=== PATIENT | male | born 1965 | race Caucasian/White ===

== ENCOUNTER 2022-05-04 08:21 | Outpatient (REF) | payer OTHER, SELFPAY ==
[2022-05-04 11:27] LABS: MANUAL DIFF FLAG NO
[2022-05-04 11:29] LABS: Basophils Percent Auto 0.7 % (0-2); Eosinophils Absolute Auto 0.2 X10*3/uL (0.0-0.4); Eosinophils Percent Auto 4.8 % (0-4); Hematocrit 44.6 % (42.0-52.0); Hemoglobin 14.7 g/dl (14.0-18.0); Imm Gran Abs Auto 0.01 X10*3/uL (0.00-0.03); Imm Gran Pct Auto 0.2 % (0.0-0.4); Lymphocytes Absolute Auto 1.1 X10*3/uL (1.2-4.9); Lymphocytes Percent Auto 27.3 % (20-40); Mean Corpuscular Hemoglobin 30.2 pg (27.0-33.0); Mean Corpuscular Volume 91.8 fL (80.0-98.0); Mean Platelet Volume 10.3 fL (9.4-12.4); Monocytes Absolute Auto 0.4 X10*3/uL (0.1-1.2); Monocytes Percent Auto 10.1 % (2-11); Neutrophils Absolute Auto 2.4 x10*3/uL (2.0-8.3); Neutrophils Percent Auto 56.9 % (45-73); Platelet Count 254 X10*3/uL (160-400); Red Blood Count 4.86 X10*6/uL (4.60-5.80); Red Cell Distribution Width 12.8 % (11.0-16.0); White Blood Count 4.1 X10*3/uL (4.8-10.8)
[2022-05-04 12:01] LABS: Appearance Urine Clear; Color Urine Yellow; Glucose Urine UA Negative (Negative); Leukocyte Esterase Urine Negative (Negative); Nitrite Urine Negative (Negative); PH 7.5 (5.0-9.0); Specific Gravity - Urine 1.015 (1.005-1.025); Urine Blood Negative (Negative); Urine Ketones Negative (Negative); Urine Protein Negative (Neg-Trace)
[2022-05-04 12:02] LABS: Alanine Aminotransferase 28 U/L (0-40); Albumin Level 4.1 g/dL (3.5-5.0); Alkaline Phosphatase 74 U/L (39-117); Anion Gap 12 (12-20); Aspartate Amino Transferase 28 U/L (5-37); Bilirubin Total 0.5 mg/dL (0.0-1.0); Blood Urea Nitrogen 16 mg/dL (9-16); Calcium 9.3 mg/dL (8.4-10.2); Carbon Dioxide 31 mmol/L (22-29); Chloride 100 mmol/L (96-108); Cholesterol 158 mg/dL; Estimated Glomerular Filt Rate > 60; Glucose Fasting 94 mg/dL (60-99); HDL Cholesterol 66 mg/dL; LDL Cholesterol Calculated 84 mg/dl; Sodium 139 mmol/L (135-145); Total Protein 6.6 g/dL (6.5-8.0); Triglycerides 44 mg/dL
[2022-05-04 12:10] LABS: PSA,Total (Free>4and<10) 0.66 ng/mL (0.00-4.00)
[2022-05-04 12:12] LABS: Bacteria Urine None Seen (None Seen); Hyaline Casts Urine 0-2 /LPF (0-2); RBC Urine 0-2 /HPF (0-2); Squamous Epithelial Cell Urine 0-2 /HPF (0-2); WBC Urine 0-5 /HPF (0-5)
== END 2022-05-04 08:22 | disposition home or self-care (01) ==
LOC: HO.HMGCLDS 08:21
PROVIDERS: PCP Internal Medicine; Visit Provider Internal Medicine
DX: Z00.00 Encounter for general adult medical examination without abnormal findings (principal); Z12.5 Encounter for screening for malignant neoplasm of prostate
CPT/HCPCS: 36415; 80053; 80061; 81001; 84153; 85025

== ENCOUNTER 2023-03-17 14:00 | Outpatient (RCR) | payer OTHER, SELFPAY ==
--- NOTE | 2023-02-03 13:48 | MHC.PT.EP ---
[facility] [place] [facility] [place] [facility] [place] Office [address] Elizabeth Guan [address] [phone] F: [phone] F: [phone] F: [phone] F: [phone] Physical Therapy Plan of Care Date of Evaluation: Date of Surgery: n/a Diagnosis: pain in R shoulder Assessment: Patient is a 57 year old male presenting to PT with complaints of pain in his R shoulder. Pt reports onset of pain began May 2022 due to insidious onset. He presents today with impairments in pain, stiffness, shoulder strength, and posture. 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 Pt expresses watermaster goal of improving strength, and is motivated to work towards this in PT. Clinical presentation today is most consistent with signs and sx associated with R shoulder pain and pt will benefit from skilled PT 2 week x 4 weeks to address the following problems and impairments noted upon evaluation: pain, stiffness, shoulder strength, and posture. These problems limit the patient with the following functional activities: reaching, lifting, yardwork, cleaning reaching . The prescribed treatment plan of care is medically necessary. Co-morbidities of none were identified and taken into considerations of plan of care. Pt was educated on HEP, role of PT, prognosis, POC. Frequency and Duration: The patient will be seen 2 x week x 4 weeks Short Term Goals: Pt will demonstrate improved R shoulder strength to 5/5 in 2 weeks. Pt will demonstrate R shoulder ROM in available range with less reports of stiffness in 2 weeks. Pt will demonstrate improved postural awareness by sitting with biomechanically correct posture without cues throughout session to improve overall postural function in 2 weeks. Correction Goals: Pt will demonstrate improved SPADI score by 13 points in 4 weeks for improved functional mobility. Pt will demonstrate ability to complete yard work with min to no pain in 4 weeks for improved tolerance to house hold duties. Pt will demonstrate ability to reach and lift with min to no pain in 4 weeks for return to PLOF. Treatment Plan: Modalities to reduce pain, spasms and effusion. Manual therapy to restore motion and function. Therapeutic exercise to improve strength and flexibility. Neuromuscular re-education for posture and balance. Therapeutic activities to return to functional activities of daily living. Electronically signed by: Varsha Seaman, PT, DPT, ATC Please sign and return to therapist. Thank you for your referral.
--- NOTE | 2023-03-25 09:26 | MHC.PT.DC ---
[facility] [place] Office [place] Office [place] Office [address] Elizabeth Guan 140 [facility] [phone] F: [phone] F: [phone] F: [phone] F: [phone] Physical Therapy Discharge Report Diagnosis: pain in R shoulder Date of Surgery: n/a Date of Evaluation: 02/03/23 Date of Discharge: 03/25/23 Treatments to Date: 8 Cancellations to Date: 7 No Shows to Date: 1 Discharge Status: Improved Function Independent with HEP Discharge Summary: The patient overall has been reporting an improvement in right shoulder strength. He is independent with his home exercise program. He is discharged to his home exercise program at this time. Electronically signed by: Ondina Chew PT, DPT Please sign and return to therapist. Thank you for your referral.
== END 2023-03-25 09:26 | disposition home or self-care (01) ==
LOC: HO.PT 14:00
PROVIDERS: PCP Internal Medicine; Visit Provider Internal Medicine
DX: M25.511 Pain in right shoulder (principal)
CPT/HCPCS: 97110; 97161; 97530

== ENCOUNTER 2023-03-31 10:03 | Outpatient (AMB) | payer OTHER, SELFPAY ==
--- NOTE | 2023-03-31 10:12 | A.OFFPC_ITS ---
Vital Signs 03/31/23 10:14 Height 6 ft Weight 165 lb BMI 22.4 BP 106/66 Blood Pressure Location Lt brachial Position Sitting Pulse 74 Pulse Source Pulse Oximeter Pulse Oximetry (%) 96 Oxygen Delivery Method Room Air Intake Visit Reasons: RT Ankle pain Intake Note: Pt is here today for a sick visit. Pt c/o R ankle pain and swelling since Tuesday. Allergies egg [EGGS] Allergy (Unknown, Unverified 03/31/23 10:15) RASH orange [ORANGES] Allergy (Unknown, Unverified 03/31/23 10:15) RASH CHOCOLATE Allergy (Unknown, Uncoded 03/31/23 10:15) RASH Medication List - Last Reconciled 03/31/23 by Arleen Kerr MD albuterol sulfate 90 mcg/actuation (ProAir HFA) 2 puffs inhalation Q6H PRN efinaconazole 10% (Jublia) 1 appl topical BEDTIME 48 weeks ibuprofen 800 mg PO Q8H montelukast 10 mg PO DAILY Tobacco use date assessed: 03/31/23 Dental Screening Dental Screen Date: 03/31/23 Did you have a dental visit in the last 12 months?: Yes Did you have a dental problem in the last 6 months where you did not have access to dental care?: No Was dental information given to patient?: Patient has dentist HPI RT Ankle pain HPI Details Pt c/o R ankle pain and swelling for 2 days. Pt has been Ibuprofen bid with some relief. Pt completed PT for R shoulder pain. [facility] Medical History Annual physical exam Asthma Asthma Family History Father Prostate cancer Mother No problems noted. Social History Housing: House Patient Tobacco Use Status: Never used Tobacco e-Cigarette/Vaping Use: Never Used Current occupational status: employed Cognitive needs: No Hearing needs: No Vision needs: Yes Questionnaire Thrive Questionnaire Date Thrive assessed: 11/05/22 SEUN-7 AMB Questionnaire SEUN-7 Date SEUN - 7 assessed: 11/05/22 Source: Developed by Drs. Stanislaw Prieto, Fela B.W. Román Helm and colleagues, with an educational elliot from [employer]. Review of Systems Const All systems reviewed & are unremarkable except as noted in HPI and below Reports no additional complaints Eyes Reports no additional complaints ENT Reports no additional complaints Card Reports no additional complaints Resp Reports no additional complaints GI Reports no additional complaints Reports no additional complaints Physical exam (Primary Care) Vital Signs: Last Vital Signs Pulse 74 03/31/23 10:14 BP 106/66 03/31/23 10:14 Pulse Ox 96 03/31/23 10:14 Oxygen Delivery Method Room Air 03/31/23 10:14 BMI result Body Mass Index 22.4 Tobacco/Smoking Status: Tobacco use Status Tobacco use date assessed 03/31/23 03/31/23 10:17 Patient Tobacco Use Status Never used Tobacco 03/31/23 10:13 e-Cigarette/Vaping Use Never Used 03/31/23 10:13 Thrive Assessment: Date of Thrive Assessment Date Thrive assessed 11/05/22 03/31/23 10:13 Const General: no acute distress Resp Auscultation: clear to auscultation bilaterally Cardio Rhythm: regular rhythm Heart sounds: S1 normal heart sound present and S2 normal heart sound present GI Inspection: Yes normal to inspection Extrem Other: Since slight lateral right ankle soft tissue swelling no erythema warmth or tenderness, there is a full range of motion right ankle Assessment and Plan Assessment & Plan (1) Right ankle swelling: Code(s): M25.471 - Effusion, right ankle Plan: Continue NSAIDs, elevation, ice compresses and supportive care (2) Annual physical exam: Code(s): Z00.00 - Encounter for general adult medical examination without abnormal findings Orders: Orders Comprehensive [place]. Panel Fast Today M25.471 - Effusion, right ankle, Z00.00 - Encounter for general adult medical examination without abnormal findings Lipid Panel Today M25.471 - Effusion, right ankle PSA,Total (Free>4and<10) Today M25.471 - Effusion, right ankle Complete Blood Count Auto Diff Today M25.471 - Effusion, right ankle Coding Level of Care Code Est Pt Level 3 (33269) Diagnoses Right ankle swelling M25.471 Annual physical exam Z00.00
[2023-03-31 10:14] VITALS: BP 106/66; PULSE 74; O2SAT 96; BMI 22.4
== END 2023-03-31 11:04 | disposition home or self-care (01) ==
PROVIDERS: PCP Internal Medicine; Visit Provider Internal Medicine
DX: M25.471 Effusion, right ankle (principal); Z00.00 Encounter for general adult medical examination without abnormal findings
CPT/HCPCS: 99213

== ENCOUNTER 2023-05-05 10:51 | Outpatient (AMB) | payer OTHER, SELFPAY ==
[2023-05-05 11:26] VITALS: BP 118/76; PULSE 52; O2SAT 98; BMI 22.1
--- NOTE | 2023-05-05 11:26 | A.OFFPC_ITS ---
Vital Signs 05/05/23 11:26 Height 6 ft Weight 163 lb BMI 22.1 BP 118/76 Blood Pressure Location Lt brachial Position Sitting Pulse 52 Pulse Source Pulse Oximeter Pulse Oximetry (%) 98 Oxygen Delivery Method Room Air Intake Visit Reasons: Annual PE Intake Note: Pt is here today for PE. Allergies egg [EGGS] Allergy (Unknown, Unverified 05/05/23 11:40) RASH orange [ORANGES] Allergy (Unknown, Unverified 05/05/23 11:40) RASH CHOCOLATE Allergy (Unknown, Uncoded 05/05/23 11:40) RASH Medication List - Last Reconciled 05/05/23 by Arleen Kerr MD albuterol sulfate 90 mcg/actuation (ProAir HFA) 2 puffs inhalation Q6H PRN efinaconazole 10% (Jublia) 1 appl topical BEDTIME 48 weeks ibuprofen 800 mg PO Q8H montelukast 10 mg PO DAILY terbinafine HCl 250 mg PO DAILY Tobacco use date assessed: 03/31/23 Dental Screening Dental Screen Date: 05/05/23 HPI Annual PE HPI Details Pt presents for PE. He complains of chronic BPH symptoms : weaker urinary stream, more frequent nocturnal urination for the last year, getting worse. Patient had seen urologist in the past and tried medication that he could not tolerate. Hr does not remember the name of the medication. Patient would like to see urologist for evaluation [facility] Medical History (Updated 05/05/23 @ 12:02 by Arleen Kerr MD) Asthma Annual physical exam Asthma Family History Father Prostate cancer Mother No problems noted. Social History Housing: House Patient Tobacco Use Status: Never used Tobacco e-Cigarette/Vaping Use: Never Used Current occupational status: employed Cognitive needs: No Hearing needs: No Vision needs: Yes Questionnaire Thrive Questionnaire Date Thrive assessed: 11/05/22 SEUN-7 AMB Questionnaire SEUN-7 Date SENU - 7 assessed: 11/05/22 Source: Developed by Drs. Stanislaw Prieto, Fela Helm, Román Pan and colleagues, with an educational elliot from [employer]. Review of Systems Const All systems reviewed & are unremarkable except as noted in HPI and below Reports no additional complaints Eyes Reports no additional complaints ENT Reports no additional complaints Card Reports no additional complaints Resp Reports no additional complaints GI Reports no additional complaints Reports no additional complaints Physical exam (Primary Care) Vital Signs: Last Vital Signs Pulse 52 05/05/23 11:26 BP 118/76 05/05/23 11:26 Pulse Ox 98 05/05/23 11:26 Oxygen Delivery Method Room Air 05/05/23 11:26 BMI result Body Mass Index 22.1 Tobacco/Smoking Status: Tobacco use Status Tobacco use date assessed 03/31/23 05/05/23 11:27 Patient Tobacco Use Status Never used Tobacco 05/05/23 11:27 e-Cigarette/Vaping Use Never Used 05/05/23 11:27 Thrive Assessment: Date of Thrive Assessment Date Thrive assessed 11/05/22 05/05/23 11:27 Const General: no acute distress HENMT Head: Yes normal to inspection Ears: hearing grossly normal bilaterally General nose exam: Normal external nose present Face and sinus: Yes normal facial exam Mouth: Normal oral and palatal mucosa present Throat: Yes posterior oropharynx normal Eyes General: appearance normal, both eyes and all related structures Neck Neck: Yes no lymphadenopathy and Yes supple Resp Effort & Inspection: normal respiratory effort Auscultation: clear to auscultation bilaterally Cardio Rhythm: regular rhythm Heart sounds: S1 normal heart sound present and S2 normal heart sound present GI Inspection: Yes normal to inspection Palpation (GI): Soft to palpation Percussion: Yes normal to percussion Auscultation: normal bowel sounds Assessment and Plan Assessment & Plan (1) Annual physical exam: Code(s): Z00.00 - Encounter for general adult medical examination without abnormal findings Plan: Well-balanced diet and regular physical activity discussed with the patient. he will return for fasting blood work (2) Colon cancer screening: Comment: Juanito 05/29 negative Code(s): Z12.11 - Encounter for screening for malignant neoplasm of colon (3) BPH (benign prostatic hyperplasia): Code(s): N40.0 - Benign prostatic hyperplasia without lower urinary tract symptoms Plan: Referred to urology and check PSA Orders: Referrals Urology Referral N40.0 - Benign prostatic hyperplasia without lower urinary tract symptoms Coding Level of Care Code Est Pt Prev Care 40-64y(60488) Diagnoses Annual physical exam Z00.00 Colon cancer screening Z12.11 BPH (benign prostatic hyperplasia) N40.0
== END 2023-05-05 12:10 | disposition home or self-care (01) ==
PROVIDERS: Visit Provider Internal Medicine
DX: Z00.00 Encounter for general adult medical examination without abnormal findings (principal); Z12.11 Encounter for screening for malignant neoplasm of colon; N40.0 Benign prostatic hyperplasia without lower urinary tract symptoms
CPT/HCPCS: 99396

== ENCOUNTER 2023-05-06 07:40 | Outpatient (REF) | payer OTHER, SELFPAY ==
[2023-05-06 11:14] LABS: MANUAL DIFF FLAG NO
[2023-05-06 11:34] LABS: Basophils Absolute Auto 0.1 X10*3/uL (0.0-0.2); Basophils Percent Auto 1.8 % (0-2); Eosinophils Absolute Auto 0.3 X10*3/uL (0.0-0.4); Eosinophils Percent Auto 6.6 % (0-4); Hematocrit 44.3 % (42.0-52.0); Hemoglobin 14.6 g/dl (14.0-18.0); Imm Gran Abs Auto 0.01 X10*3/uL (0.00-0.03); Imm Gran Pct Auto 0.3 % (0.0-0.4); Lymphocytes Absolute Auto 1.1 X10*3/uL (1.2-4.9); Lymphocytes Percent Auto 27.9 % (20-40); Mean Corpuscular Hemoglobin 30.4 pg (27.0-33.0); Mean Corpuscular Volume 92.1 fL (80.0-98.0); Mean Platelet Volume 10.6 fL (9.4-12.4); Monocytes Absolute Auto 0.4 X10*3/uL (0.1-1.2); Monocytes Percent Auto 10.7 % (2-11); Neutrophils Absolute Auto 2.1 x10*3/uL (2.0-8.3); Neutrophils Percent Auto 52.7 % (45-73); Platelet Count 233 X10*3/uL (160-400); Red Blood Count 4.81 X10*6/uL (4.60-5.80); Red Cell Distribution Width 12.6 % (11.0-16.0); White Blood Count 3.9 X10*3/uL (4.8-10.8)
[2023-05-06 11:35] LABS: Alanine Aminotransferase 30 U/L (0-40); Albumin Level 4.2 g/dL (3.5-5.0); Alkaline Phosphatase 70 U/L (39-117); Anion Gap 15 (12-20); Aspartate Amino Transferase 36 U/L (5-37); Bilirubin Total 0.7 mg/dL (0.0-1.0); Blood Urea Nitrogen 16 mg/dL (9-16); Calcium 9.4 mg/dL (8.4-10.2); Carbon Dioxide 29 mmol/L (22-29); Chloride 100 mmol/L (96-108); Cholesterol 160 mg/dL (<200); Estimated Glomerular Filt Rate > 60; Glucose Fasting 88 mg/dL (60-99); HDL Cholesterol 70 mg/dL (>40); LDL Cholesterol Calculated 82 mg/dL (<100); Potassium 3.9 mmol/L (3.3-5.1); Sodium 140 mmol/L (135-145); Total Protein 7.1 g/dL (6.5-8.0); Triglycerides 41 mg/dL (<150)
[2023-05-06 11:53] LABS: PSA,Total (Free>4and<10) 0.86 ng/mL (0.00-4.00)
== END 2023-05-06 07:41 | disposition home or self-care (01) ==
LOC: HO.HMGCLDS 07:40
PROVIDERS: PCP Internal Medicine; Visit Provider Internal Medicine
DX: Z00.00 Encounter for general adult medical examination without abnormal findings (principal); Z12.5 Encounter for screening for malignant neoplasm of prostate; M25.471 Effusion, right ankle
CPT/HCPCS: 36415; 80053; 80061; 84153; 85025

== ENCOUNTER 2023-06-23 11:07 | Outpatient (AMB) | payer OTHER, SELFPAY ==
--- NOTE | 2023-06-23 11:11 | A.OFFVIS_ITS ---
Intake Intake Visit Reasons: BPH Intake Note: NEW Patient presents today to established treatment for BPH: Meds- Rapaflo Allergies to Antibiotic- No Known Allergies Blood Thinner- None Compensation Vice President Required: No Accompanied by: Self / Same As Patient Allergies egg [EGGS] Allergy (Unknown, Unverified 06/23/23 12:03) RASH orange [ORANGES] Allergy (Unknown, Unverified 06/23/23 12:03) RASH CHOCOLATE Allergy (Unknown, Uncoded 06/23/23 12:03) RASH Medication List - Last Reconciled 06/23/23 by Renee Chaudhari MD albuterol sulfate 90 mcg/actuation (ProAir HFA) 2 puffs inhalation Q6H PRN efinaconazole 10% (Jublia) 1 appl topical BEDTIME 48 weeks ibuprofen 800 mg PO Q8H montelukast 10 mg PO DAILY silodosin (Rapaflo) 8 mg PO DAILY terbinafine HCl 250 mg PO DAILY HPI HPI Comments History of Present Illness Details Garfield is a 58-year-old male who presents today to the office to establish as a new patient for an evaluation of BPH. 06/23/2023-- Patient states that he has noticed weak urinary stream and increased urinary frequency during the day. Patient states that he is getting up 1-3 times at night to urinate. His AUA symptoms score was 24. He denies any urinary burning with urination or blood in the urine. He states that years ago he saw a urologist and was prescribed with a medication and was instructed to take it night. He notes that by taking the medication he felt like he was going to pass out. Patient states that he only took the medication once due to its side effects. I did review the PSA on 05/06/2023 revealed 0.86 ng/mL Evaluation today--UA-- leukocytes: negative; blood: negative. Plan: Kidney bladder US was ordered. Ordered Rapaflo 8 mg. PFSH Medical History Asthma Annual physical exam Asthma Family History Father Prostate cancer Mother No problems noted. Social History Housing: House Patient Tobacco Use Status: Never used Tobacco e-Cigarette/Vaping Use: Never Used Current occupational status: employed Cognitive needs: No Hearing needs: No Vision needs: Yes Review of Systems Const All systems reviewed & are unremarkable except as noted in HPI and below Reports no additional complaints Eyes Reports no additional complaints ENT Reports no additional complaints Card Denies dyspnea Resp Denies cough and Denies dyspnea GI Reports no additional complaints Musc Reports no additional complaints Skin/Breast Denies rash and Denies unusual bruising Neuro Reports no additional complaints Psych Reports no additional complaints Endo Reports no additional complaints Jimmy/Lymph Reports no additional complaints Aller/Immun Reports no additional complaints Physical Exam Const General: healthy appearing, no acute distress and well developed Orientation/consciousness: patient oriented x3 HEENT Head: Yes normocephalic and Yes atraumatic Eyes Conjunctivae: conjunctivae normal Neck Neck: Yes normal visual inspection Chest Chest palpation & inspection: normal inspection of the chest Resp Effort & Inspection: normal respiratory effort Cardio Rate: regular rate GI Inspection: Yes normal to inspection Skin General skin exam: no rashes or lesions noted Neuro General: patient oriented x3 Extrem General: No pedal edema Psych Appearance: grossly normal Affect: normal affect Results AMB Urinalysis, Automated UA Leukoctes 0 Jessica/uL Last Edit by BARB Vega on 06/23/23 11:34 UA Nitrite Negative Last Edit by BARB Vega on 06/23/23 11:34 UA Urobilinogen 0.2 mg/dL Last Edit by BARB Vega on 06/23/23 11:3 4 UA Protein 0 mg/dL Last Edit by BARB Vega on 06/23/23 11:34 UA pH 6.0 Last Edit by BARB Vega on 06/23/23 11:34 UA Blood 10 Tres/uL Last Edit by BARB Vega on 06/23/23 11:34 UA Specific Hawkins 1.025 Last Edit by BARB Vega on 06/23/23 11: 34 UA Ketone Negative Last Edit by BARB Vega on 06/23/23 11:34 UA Bilirubin 0 mg/dL Last Edit by DANIEL VegaA on 06/23/23 11:34 UA Glucose 0 mg/dL Last Edit by BARB Vega on 06/23/23 11:34 Results Reviewed Results Reviewed: Laboratory Last Values Urine pH (Auto) 6.0 06/23/23 11:33 Specific Hawkins (Auto) 1.025 06/23/23 11:33 Urine Protein (Auto) 0 mg/dL 06/23/23 11:33 Glucose (UA)(Auto) 0 mg/dL 06/23/23 11:33 Urine Ketones (Auto) Negative 06/23/23 11:33 Urine Blood (Auto) 10 Tres/uL 06/23/23 11:33 Urine Nitrite (Auto) Negative 06/23/23 11:33 Urine Bilirubin (Auto) 0 mg/dL 06/23/23 11:33 Urine Urobilinogen (Auto) 0.2 mg/dL 06/23/23 11:33 Leukocyte Esterase (Auto) 0 Jessica/uL 06/23/23 11:33 Assessment & Plan Assessment & Plan (1) BPH (benign prostatic hyperplasia): Code(s): N40.0 - Benign prostatic hyperplasia without lower urinary tract symptoms (2) Weak urinary stream: Code(s): R39.12 - Poor urinary stream (3) Urinary urgency: Code(s): R39.15 - Urgency of urination Plan Kidney bladder US was ordered. Ordered Rapaflo 8 mg. Orders: Orders AMB Urinalysis Automated 06/23/23 Z13.9 - Encounter for screening, unspecified Medications: New silodosin (Rapaflo) must administer with a meal/food 8 mg PO DAILY 30 caps 2RF Patient Instructions: The patient had an opportunity to ask questions regarding treatment plan. All questions were answered. Imaging, Laboratory studies and physical exam results were discussed and reviewed in detail. No major barriers to understanding were identified. The patient expressed understanding and agreement with the above treatment plan. The patient is aware they should contact our office by phone for worsening of their current condition or the appearance of new symptoms. Compliance is encouraged with any medications and followup testing that is ordered. It is a privilege to be allowed the opportunity to participate in the urologic care of your patient. If you have any questions or concerns regarding treatment for the above conditions please do not hesitate to contact me. The office telephone contact is [phone]. This note is constructed in part using voice recognition software. While every effort has been made to ensure accuracy piano professor errors may have been included. Yours sincerely, Renee Chaudhari MD Coding Level of Care Code New Pt Level 4 (04663) Diagnoses BPH (benign prostatic hyperplasia) N40.0 Weak urinary stream R39.12 Urinary urgency R39.15
== END 2023-06-23 11:54 | disposition home or self-care (01) ==
PROVIDERS: PCP Internal Medicine; Visit Provider Urology
DX: N40.0 Benign prostatic hyperplasia without lower urinary tract symptoms (principal); R39.12 Poor urinary stream; R39.15 Urgency of urination
CPT/HCPCS: 99204

== ENCOUNTER → 2023-06-23 11:07 | Outpatient (BNVA) | payer OTHER, SELFPAY | PROVIDERS: PCP Internal Medicine; Visit Provider Urology | DX: N40.0 Benign prostatic hyperplasia without lower urinary tract symptoms (principal); R39.12 Poor urinary stream; R39.15 Urgency of urination | CPT/HCPCS: 81003 ==

== ENCOUNTER 2023-08-17 14:29 | Outpatient (REF) | payer OTHER, SELFPAY ==
--- NOTE | ~2023-08-17 | US_ITS ---
EXAMINATION: US RETROPERITONEAL LIMITED (RENAL ONLY) CLINICAL INFORMATION: Urgency of urination. COMPARISON: None available. TECHNIQUE: Real-time imaging of the kidneys. FINDINGS: RIGHT KIDNEY: 12.8 x 4.1 x 5.5 cm (SAG x AP x TRV). The kidney is normal in size, contour, and echogenicity. Renal cortical thickness is normal. No calculi or focal parenchymal lesions. No hydronephrosis. LEFT KIDNEY: 11.4 x 4.8 x 5.5 cm (SAG x AP x TRV). The kidney is normal in size, contour, and echogenicity. Renal cortical thickness is normal. No calculi or focal parenchymal lesions. No hydronephrosis. US/US renal BI IMPRESSION: Normal kidneys.
== END 2023-08-17 14:30 | disposition home or self-care (01) ==
LOC: HO.HMGCX 14:29
PROVIDERS: PCP Internal Medicine; Visit Provider Urology
DX: R39.15 Urgency of urination (principal); R39.12 Poor urinary stream; N20.0 Calculus of kidney
CPT/HCPCS: 76775

== ENCOUNTER 2023-08-18 07:37 | Outpatient (REF) | payer OTHER, SELFPAY ==
--- NOTE | ~2023-08-18 | XR_ITS ---
EXAMINATION: XR SHOULDER, RIGHT CLINICAL INFORMATION: Reason for Exam M25.519 - Pain in unspecified shoulder COMPARISON: None TECHNIQUE: Three views of the shoulder. FINDINGS: No acute fracture or dislocation. Mild degenerative changes of the acromioclavicular joint with degenerative spurring. Well-corticated osseous fragment in the acromioclavicular joint may reflect sequelae of remote avulsion injury or loose body. Soft tissues are unremarkable. XR/XR shoulder RT min 2V IMPRESSION: Mild degenerative changes of the acromioclavicular joint with degenerative spurring. Well-corticated osseous fragment in the acromioclavicular joint may reflect sequelae of remote avulsion injury or loose body.
== END 2023-08-18 07:38 | disposition home or self-care (01) ==
LOC: HO.HOSX 07:37
PROVIDERS: Visit Provider Orthopaedic Surgery
DX: M25.511 Pain in right shoulder (principal)
CPT/HCPCS: 20610; 73030; J0665; J1100

== ENCOUNTER 2023-08-18 10:54 | Outpatient (AMB) | payer OTHER, SELFPAY ==
--- NOTE | 2023-08-18 11:09 | A.OFFVIS_ITS ---
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 He has tried and failed 800mg Ibuprofen as well as physical therapy which didnt help. Pain is worsened with lifting, reaching and carrying. 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 He has found little to no relief from NSAIDS or PT, and is interested in injections. [facility] Medical History Asthma Annual physical exam Asthma Family History Father Prostate cancer Mother No problems noted. Social History Housing: House Patient Tobacco Use Status: Never used Tobacco e-Cigarette/Vaping Use: Never Used Current occupational status: employed Cognitive needs: No Hearing needs: No Vision needs: Yes Review of Systems Const All systems reviewed & are unremarkable except as noted in HPI and below Physical Exam Const General: no acute distress, alert and awake Orientation/consciousness: patient oriented x3 HEENT Head: Yes normocephalic and Yes atraumatic Eyes EOM: EOMs intact bilaterally Resp Effort & Inspection: normal respiratory effort and able to speak in complete sentences Cardio Jugular venous distension: no JVD Skin General skin exam: turgor normal Rashes: no rashes Neuro General: patient oriented x3 Extrem Other: full rom neg ec neg impingement + o'diana's and ttp bicipital groove Psych Appearance: grossly normal Affect: normal affect Attitude: cooperative Office Procedures Joint Injection/Drain Joint Injection/Drain Details: Injected 1 mL of Decadron and 3 mL 1% lidocaine and 3 mL of 0.25% Marcaine. Site was prepped using aseptic technique. Patient tolerated the procedure well. Primary Site: right shoulder Approach Used: posterolateral Coding - Large joint Procedure code (CPT) selection complete Results Reviewed Results Reviewed: I personally reviewed relevant radiographs nl shoulder radiographs Assessment & Plan Assessment & Plan (1) Right shoulder pain: Code(s): M25.511 - Pain in right shoulder Plan: I injected his right shoulder. He has occasional pain and a fairly benign exam. If injection not helpful may consider more advanced imaging. Plan Scribed for Kashif David MD by Raz Hanna, medical photographer, on 08/18/23 at 11:13 AM, EST. Orders: Orders XR shoulder RT min 2V 08/18/23 M25.519 - Pain in unspecified shoulder Coding Level of Care Code New Pt Level 3 (92852) Diagnoses Right shoulder pain M25.511 CPT Codes Coding - Large joint: 66480 - Large joint ([id number])
== END 2023-08-18 11:40 | disposition home or self-care (01) ==
PROVIDERS: PCP Internal Medicine; Visit Provider Orthopaedic Surgery
DX: M25.511 Pain in right shoulder (principal)
CPT/HCPCS: 20610; 99203

== ENCOUNTER 2023-09-15 14:08 | Outpatient (AMB) | payer OTHER, SELFPAY ==
--- NOTE | 2023-09-15 14:14 | A.OFFVIS_ITS ---
Intake Intake Visit Reasons: 7w/US Intake Note: Patient presents today for Ultrasound Results: Meds- Rapaflo Allergies to Antibiotic- No Known Allergies Blood Thinner- None Merchandise Clerk Required: No Accompanied by: Self / Same As Patient Allergies egg [EGGS] Allergy (Unknown, Verified 09/15/23 14:34) RASH orange [ORANGES] Allergy (Unknown, Verified 09/15/23 14:34) RASH CHOCOLATE Allergy (Unknown, Uncoded 09/15/23 14:34) RASH Medication List - Last Reconciled 09/15/23 by Renee Chaudhari MD albuterol sulfate 90 mcg/actuation (ProAir HFA) 2 puffs inhalation Q6H PRN efinaconazole 10% (Jublia) 1 appl topical BEDTIME 48 weeks ibuprofen 800 mg PO Q8H montelukast 10 mg PO DAILY silodosin (Rapaflo) 8 mg PO DAILY terbinafine HCl 250 mg PO DAILY HPI HPI Comments History of Present Illness Details 09/15/23--Garfield is a 58-year-old male who presents today to the office for follow up. He was initially evaluated on 06/23/2023 as a new patient for an evaluation of BPH. LV--06/23/2023--Patient states that he has noticed weak urinary stream and in creased urinary frequency during the day. Patient states that he is getting up 1-3 times at night to urinate. His AUA symptoms score was 24/35. He denies any urinary burning with urination or blood in the urine. He states that years ago he saw a urologist and was prescribed with a medication and was instructed to take it night. He notes that by taking the medication he felt like he was going to pass out. Patient states that he only took the medication once due to its side effects. PSA on 05/06/2023 revealed 0.86 ng/mL I reviewed renal ultrasound results, performed on 08/17/2023. Kidneys are within normal limits. The patient states that he used the Rapaflo for about 2 weeks but stopped because when he woke up in the night he had a warm feeling or sensation that he did not like. He states he was prescribed a different medication by another urologist that made him dizzy. (this may have been tamsulosin). I discussed possible trial of alfuzosin which he refuses at this time. He is interested in an herbal medication that might help his prostate and he has discussed that saw palmetto may be helpful. Advised avoid caffeine products and avoid dietary irritants. Plan: Patient will consider use of saw palmetto PSA screening follow-up in 9 months [facility] Medical History (Updated 09/15/23 @ 14:29 by Renee Chaudhari MD) Asthma Annual physical exam Asthma Surgical History (Updated 09/15/23 @ 14:35 by BARB Vega) No pertinent past surgical history Family History Father Prostate cancer Mother No problems noted. Social History Housing: House Patient Tobacco Use Status: Never used Tobacco e-Cigarette/Vaping Use: Never Used Current occupational status: employed Cognitive needs: No Hearing needs: No Vision needs: Yes Review of Systems Const All systems reviewed & are unremarkable except as noted in HPI and below Reports no additional complaints Eyes Reports no additional complaints ENT Denies neck pain Card Denies leg edema Resp Denies cough GI Denies constipation Musc Reports no additional complaints and Denies neck pain Skin/Breast Denies rash and Denies unusual bruising Neuro Reports no additional complaints Psych Reports no additional complaints Endo Reports no additional complaints Jimmy/Lymph Reports no additional complaints Aller/Immun Reports no additional complaints Results Reviewed Results Reviewed: Date of Service: 08/17/23 EXAMINATION: US RETROPERITONEAL LIMITED (RENAL ONLY) CLINICAL INFORMATION: Urgency of urination. COMPARISON: None available. TECHNIQUE: Real-time imaging of the kidneys. FINDINGS: RIGHT KIDNEY: 12.8 x 4.1 x 5.5 cm (SAG x AP x TRV). The kidney is normal in size, contour, and echogenicity. Renal cortical thickness is normal. No calculi or focal parenchymal lesions. No hydronephrosis. LEFT KIDNEY: 11.4 x 4.8 x 5.5 cm (SAG x AP x TRV). The kidney is normal in size, contour, and echogenicity. Renal cortical thickness is normal. No calculi or focal parenchymal lesions. No hydronephrosis. IMPRESSION: Normal kidneys. Assessment & Plan Assessment & Plan (1) Screening PSA (prostate specific antigen): Code(s): Z12.5 - Encounter for screening for malignant neoplasm of prostate (2) Nocturia: Code(s): R35.1 - Nocturia (3) BPH (benign prostatic hyperplasia): Code(s): N40.0 - Benign prostatic hyperplasia without lower urinary tract symptoms (4) Weak urinary stream: Code(s): R39.12 - Poor urinary stream Plan Patient will consider use of BodBot PSA screening follow-up in 9 months Orders: Orders US renal BI 08/17/23 N40.0 - Benign prostatic hyperplasia without lower urinary tract symptoms, R39.12 - Poor urinary stream, R39.15 - Urgency of urination PSA,Total (Free>4and<10) Today Z12.5 - Encounter for screening for malignant neoplasm of prostate Patient Instructions: The patient had an opportunity to ask questions regarding treatment plan. All questions were answered. Imaging, Laboratory studies and physical exam results were discussed and reviewed in detail. No major barriers to understanding were identified. The patient expressed understanding and agreement with the above treatment plan. The patient is aware they should contact our office by phone for worsening of their current condition or the appearance of new symptoms. Compliance is encouraged with any medications and followup testing that is ordered. It is a privilege to be allowed the opportunity to participate in the urologic care of your patient. If you have any questions or concerns regarding treatment for the above conditions please do not hesitate to contact me. The office telephone contact is [phone]. This note is constructed in part using voice recognition software. While every effort has been made to ensure accuracy package designer errors may have been included. Yours sincerely, Renee Chaudhari MD Coding Level of Care Code Est Pt Level 4 (34447) Diagnoses Screening PSA (prostate specific antigen) Z12.5 Nocturia R35.1 BPH (benign prostatic hyperplasia) N40.0 Weak urinary stream R39.12
== END 2023-09-15 14:32 | disposition home or self-care (01) ==
PROVIDERS: PCP Internal Medicine; Visit Provider Urology
DX: Z12.5 Encounter for screening for malignant neoplasm of prostate (principal); R35.1 Nocturia; N40.0 Benign prostatic hyperplasia without lower urinary tract symptoms; R39.12 Poor urinary stream
CPT/HCPCS: 99214

== ENCOUNTER → 2023-09-15 14:08 | Outpatient (BNVA) | payer OTHER, SELFPAY | PROVIDERS: PCP Internal Medicine; Visit Provider Urology | DX: R39.15 Urgency of urination (principal); R39.12 Poor urinary stream; N40.0 Benign prostatic hyperplasia without lower urinary tract symptoms ==

== ENCOUNTER 2023-11-10 09:40 | Outpatient (REF) | payer OTHER, SELFPAY ==
--- NOTE | ~2023-11-10 | XR_ITS ---
EXAMINATION: XR LUMBOSACRAL SPINE CLINICAL INFORMATION: Low back pain COMPARISON: None available. TECHNIQUE: Three views of the lumbosacral spine. FINDINGS: The visualized lumbar vertebrae are intact with anterior L4 on L5 displacement by 0.4 cm. Intervertebral disc spaces are mildly decreased at L4-L5, markedly decreased at L5-S1. Vacuum disc phenomenon is seen at L5-S1. XR/XR lumbar spine 2-3V IMPRESSION: 1. Grade 1 L4-L5 anterolisthesis. 2. Mild L4-L5 and advanced L5-S1 degenerative lumbar disc disease.
== END 2023-11-10 09:41 | disposition home or self-care (01) ==
LOC: HO.HOSX 09:40
PROVIDERS: Visit Provider Physical Medicine & Rehabilitation
DX: M54.50 Low back pain, unspecified (principal); G89.29 Other chronic pain
CPT/HCPCS: 72100

== ENCOUNTER 2023-11-10 09:55 | Outpatient (AMB) | payer OTHER, SELFPAY ==
--- NOTE | 2023-11-10 10:16 | A.OFFVIS_ITS ---
Intake Intake Visit Reasons: New Prob- Lower back pain Intake Note: Garfield is a 58 year old male who presents to the office today for a lower back pain. Pt states this started years ago but states he has tried OTC meds but it hasnt fixed the problem . He states the lower back pain is mainly after sitting for longer periods of time. Pt states the pain just stays in his lower back and doesnt radiate. Allergies egg [EGGS] Allergy (Unknown, Verified 11/10/23 10:16) RASH orange [ORANGES] Allergy (Unknown, Verified 11/10/23 10:16) RASH CHOCOLATE Allergy (Unknown, Uncoded 11/10/23 10:16) RASH Medication List - Last Reconciled 11/10/23 by Didi Begum MD albuterol sulfate 90 mcg/actuation (ProAir HFA) 2 puffs inhalation Q6H PRN efinaconazole 10% (Jublia) 1 appl topical BEDTIME 48 weeks ibuprofen 800 mg PO Q8H montelukast 10 mg PO DAILY silodosin (Rapaflo) 8 mg PO DAILY terbinafine HCl 250 mg PO DAILY HPI HPI Comments History of Present Illness Details Back pain in his 20s. Manageable for most part before. Getting worse recently. Had gone to chiropractor, took some xrays, told to have arthritis, years ago. Has been worse with sitting on couches. Non radicular. Midline. No numbness. No weakness. Stiff in the morning. Treatment done so far: icy/hot ibuprofen prn chiropractor PFS Medical History (Updated 11/10/23 @ 11:49 by Didi Begum MD) Chronic back pain Asthma Annual physical exam Asthma Surgical History No pertinent past surgical history Family History Father Prostate cancer Mother No problems noted. Social History Housing: House Patient Tobacco Use Status: Never used Tobacco e-Cigarette/Vaping Use: Never Used Current occupational status: employed Cognitive needs: No Hearing needs: No Vision needs: Yes Review of Systems Const All systems reviewed & are unremarkable except as noted in HPI and below Physical Exam Constitutional: Patient appears to be in no acute distress, well nourished and well developed. Patient was appropriately conversant and oriented. Good historian. MSK: No specific abnormalities found on inspection of the spine and all extremities. No pain with palpation over the lumbar area. Lumbar ROM was full. Bilateral hip, knee and ankle ROM WNL. No ligamentous laxity or crepitance. No increased effusion. Straight-leg raising test negative. FABERE test negative. Strength is 5/5 in all muscle groups tested. No increased tone noted. Neurological: Neurologic examination of the upper and lower extremities was nonfocal with intact sensation, muscle stretch reflexes and without focal motor deficits . Zazueta?s negative bilaterally. Babinski was down going bilaterally. Clonus was negative. Gait is non-antalgic without loss of balance. Results Reviewed Results Reviewed: I independently reviewed the results of the following: Lumbar x-ray done today shows decreased disc space L5-S1, question grade 1/mild L1-L2 listhesis? I reviewed records from the following: ortho - seen patient for right shoulder, injection done Assessment & Plan Assessment & Plan (1) Chronic back pain: Code(s): M54.9 - Dorsalgia, unspecified; G89.29 - Other chronic pain Qualifiers: Back pain location: low back pain Back pain laterality: midline Sciatica presence: without sciatica Qualified Code(s): M54.50 - Low back pain, unspecified; G89.29 - Other chronic pain Plan Chronic ischial back pain, no signs of radiculopathy, worse with prolonged sitting. Recommended return to chiropractor and/or physical therapy. He opts to go to chiropractor, referral placed. We did talk about possible MBB or facet injection under pain management. We will consider that after official x-ray reading seen. Await final reading for x-ray. Considering further lumbar imaging, depending on results. Assessment and plan discussed with patient, and patient was agreeable. All questions were answered thoroughly. We will touch base with patient after x-ray has been read. Didi Begum MD, BENJAMIN Board Certified, [place] [employer] and Rehabilitation (ABPMR) Board Certified, [place] [employer] Electro[employer]ostic [employer] (ABEM) Orders: Orders XR lumbar spine 2-3V Today M54.9 - Dorsalgia, unspecified Referrals Chiropractic Referral G89.29 - Other chronic pain, M54.9 - Dorsalgia, unspecified Coding Level of Care Code New Pt Level 4 (92820) Diagnoses Chronic midline low back pain without sciatica M54.50; G89.29 Back pain location: low back pain Back pain laterality: midline Sciatica presence: without sciatica
== END 2023-11-10 10:59 | disposition home or self-care (01) ==
PROVIDERS: PCP Internal Medicine; Visit Provider Physical Medicine & Rehabilitation
DX: M54.50 Low back pain, unspecified (principal); G89.29 Other chronic pain
CPT/HCPCS: 99204

== ENCOUNTER 2024-01-23 10:27 | Outpatient (AMB) | payer OTHER, SELFPAY ==
--- NOTE | 2024-01-23 10:43 | MHC.OFFVIS ---
Vital Signs 01/23/24 10:44 Height 6 ft Weight 160 lb BMI 21.7 Handedness Right Intake Visit Reasons: OV - Right shoulder pain Intake Note: Garfield is a 58 year old right hand dominant male who presents today for a follow up visit for his right shoulder pain. Last injection 08/18/23. Patient reports his right shoulder is feeling weaker than his left. He expresses he is having discomfort and pain when he raises his arm laterally with limited ROM. He has tried Advil which provides him with mild relief. He would like to discuss another injection today. Allergies tomato Allergy (Mild, Verified 01/23/24 10:49) Rash egg [EGGS] Allergy (Unknown, Verified 01/23/24 10:49) RASH orange [ORANGES] Allergy (Unknown, Verified 01/23/24 10:49) RASH CHOCOLATE Allergy (Unknown, Uncoded 11/10/23 10:16) RASH HPI HPI OV - Right shoulder pain: Details: Garfield is a 58 year old right hand dominant male who presents today for a follow up visit for his right shoulder pain. Last injection 08/18/23. Patient reports his right shoulder is feeling weaker than his left. He expresses he is having discomfort and pain when he raises his arm laterally with limited ROM. He has tried Advil which provides him with mild relief. He would like to discuss another injection today.HE continues to describe pain and weakness with activity such as working in his yard. The pain is not severe but the weakness does bother him. The last injection was not particularly helpful. He underwent PT about 6 months ago. [facility] Medical History Spondylolisthesis, lumbar region Chronic back pain Asthma Annual physical exam Asthma Surgical History No pertinent past surgical history Family History Father Prostate cancer Mother No problems noted. Social History Housing: House Patient Tobacco Use Status: Never used Tobacco e-Cigarette/Vaping Use: Never Used Current occupational status: employed Cognitive needs: No Hearing needs: No Vision needs: Yes Physical Exam Vital Signs: BMI result Body Mass Index 21.7 Extrem Other: Full ROM +H/N and 4+/5 EC TTP Bicipital groove and + O'diana's Results Reviewed Results Reviewed: I personally reviewed relevant radiographs. Nl shoulder radiographs with the exception of small osteophyte adjacent to AC joint Assessment & Plan Assessment & Plan (1) Weakness of right shoulder: Code(s): R29.898 - Other symptoms and signs involving the musculoskeletal system Category: Medical Plan: Injections and PT have not been helpful. MRI of right shoudler ordered. Coding Level of Care Code Est Pt Level 3 (28179) Diagnoses Weakness of right shoulder R29.898
[2024-01-23 10:44] VITALS: BMI 21.7
== END 2024-01-23 11:00 | disposition home or self-care (01) ==
PROVIDERS: PCP Internal Medicine; Visit Provider Orthopaedic Surgery
DX: M25.511 Pain in right shoulder (principal); R29.898 Other symptoms and signs involving the musculoskeletal system
CPT/HCPCS: 99213

== ENCOUNTER → 2024-01-23 10:27 | Outpatient (BNVA) | payer OTHER, SELFPAY | PROVIDERS: PCP Internal Medicine; Visit Provider Orthopaedic Surgery ==

== ENCOUNTER 2024-02-16 10:00 | Outpatient (AMB) | payer OTHER, SELFPAY ==
--- NOTE | 2024-02-16 10:12 | A.OFFVIS_ITS ---
Vital Signs 02/16/24 10:18 Height 6 ft Weight 160 lb BMI 21.7 Intake Visit Reasons: OV-Lower back follow up appointment Intake Note: Garfield is a 58 year old male who presents to the office today for Lower back follow up. Xrays of lumbar spine done 11/10/23. Patient express he is seeing the chiropractor as needed and it offers him relief for a few days, sometimes a few weeks. Sitting in certain chairs for too long can be a problem with his back. Allergies tomato Allergy (Mild, Verified 02/16/24 10:21) Rash egg [EGGS] Allergy (Unknown, Verified 02/16/24 10:21) RASH orange [ORANGES] Allergy (Unknown, Verified 02/16/24 10:21) RASH CHOCOLATE Allergy (Unknown, Uncoded 02/16/24 10:21) RASH Medication List - Last Reconciled 02/16/24 by Didi Begum MD albuterol sulfate 90 mcg/actuation (ProAir HFA) 2 puffs inhalation Q6H PRN ibuprofen 800 mg PO Q8H loratadine (Claritin) 10 mg PO DAILY montelukast 10 mg PO DAILY silodosin (Rapaflo) 8 mg PO DAILY terbinafine HCl 250 mg PO DAILY HPI Comments Details: Back pain in his 20s. Manageable for most part before. Getting worse recently. Had gone to chiropractor, took some xrays, told to have arthritis, years ago. Has been worse with sitting on couches. Non radicular. Midline. No numbness. No weakness. Stiff in the morning. Treatment done so far: icy/hot ibuprofen prn chiropractor X-ray showed disc space loss L5-S1. I have ordered an MRI lumbar spine, this was approved but patient had not done it yet. Order is no . Pain is still axial, nonradicular. Does not affect legs. Denies any numbness or tingling down the legs. Worse with sitting. [facility] Medical History Spondylolisthesis, lumbar region Chronic back pain Asthma Annual physical exam Asthma Surgical History No pertinent past surgical history Family History Father Prostate cancer Mother No problems noted. Social History Housing: House Patient Tobacco Use Status: Never used Tobacco e-Cigarette/Vaping Use: Never Used Current occupational status: employed Cognitive needs: No Hearing needs: No Vision needs: Yes Physical Exam Vital Signs: BMI result Body Mass Index 21.7 Constitutional: Patient appears to be in no acute distress, well nourished and well developed. Patient was appropriately conversant and oriented. Good historian. MSK: No specific abnormalities found on inspection of the spine and all extremities. No pain with palpation over the lumbar area. Lumbar ROM was full. Bilateral hip, knee and ankle ROM WNL. No ligamentous laxity or crepitance. No increased effusion. Straight-leg raising test negative. FABERE test negative. Strength is 5/5 in all muscle groups tested. No increased tone noted. Neurological: Neurologic examination of the upper and lower extremities was nonfocal with intact sensation, muscle stretch reflexes and without focal motor deficits . Babinski was down going bilaterally. Clonus was negative. Gait is non-antalgic without loss of balance. Results Reviewed Results Reviewed: Ordering Physician: Didi Bynum Date of Service: 11/10/23 Procedure(s): XR lumbar spine 2-3V Accession Number(s): [id number] cc: Didi Bynum~ EXAMINATION: XR LUMBOSACRAL SPINE CLINICAL INFORMATION: Low back pain COMPARISON: None available. TECHNIQUE: Three views of the lumbosacral spine. FINDINGS: The visualized lumbar vertebrae are intact with anterior L4 on L5 displacement by 0.4 cm. Intervertebral disc spaces are mildly decreased at L4-L5, markedly decreased at L5-S1. Vacuum disc phenomenon is seen at L5-S1. XR/XR lumbar spine 2-3V IMPRESSION: 1. Grade 1 L4-L5 anterolisthesis. 2. Mild L4-L5 and advanced L5-S1 degenerative lumbar disc disease. Assessment & Plan Assessment & Plan (1) Chronic back pain: Code(s): M54.9 - Dorsalgia, unspecified; G89.29 - Other chronic pain Category: Medical Qualifiers: Back pain location: low back pain Back pain laterality: midline Sciatica presence: without sciatica Qualified Code(s): M54.50 - Low back pain, unspecified; G89.29 - Other chronic pain (2) Lumbar degenerative disc disease: Code(s): M51.36 - Other intervertebral disc degeneration, lumbar region Category: Medical Plan Chronic back pain. I think at this point we do need an MRI so that it could guide us for treatment, whether this needs intervention. It will also help us for patient expectation and prognosis. MRI lumbar spine were ordered. Assessment and plan discussed with patient, and patient was agreeable. All questions were answered thoroughly. Follow up after MRI. Didi Begum MD, BENJAMIN Board Certified, [place] [employer] and [employer] (ABPMR) Board Certified, [place] [employer] Electro[employer] (ABEM) Orders: Orders MR lumbar spine wo con Today G89.29 - Other chronic pain, M51.36 - Other intervertebral disc degeneration, lumbar region, M54.50 - Low back pain, unspecified Coding Level of Care Code Est Pt Level 3 (44426) Diagnoses Chronic midline low back pain without sciatica M54.50; G89.29 Back pain location: low back pain Back pain laterality: midline Sciatica presence: without sciatica Lumbar degenerative disc disease M51.36
[2024-02-16 10:18] VITALS: BMI 21.7
== END 2024-02-16 10:57 | disposition home or self-care (01) ==
PROVIDERS: PCP Internal Medicine; Visit Provider Physical Medicine & Rehabilitation
DX: M54.50 Low back pain, unspecified (principal); G89.29 Other chronic pain; M51.36 Other intervertebral disc degeneration, lumbar region
CPT/HCPCS: 99213

== ENCOUNTER → 2024-02-16 10:00 | Outpatient (BNVA) | payer OTHER, SELFPAY | PROVIDERS: PCP Internal Medicine; Visit Provider Physical Medicine & Rehabilitation ==

== ENCOUNTER 2024-02-21 19:22 | Outpatient (REF) | payer OTHER, SELFPAY ==
--- NOTE | ~2024-02-21 | MR_ITS ---
EXAMINATION: MR SHOULDER WITHOUT CONTRAST, RIGHT CLINICAL INFORMATION: Right shoulder pain. COMPARISON: Right shoulder radiographs dated 08/18/2023. TECHNIQUE: MRI of the shoulder without contrast was performed on a high-field scanner. FINDINGS: ROTATOR CUFF: Minimal supraspinatus and infraspinatus tendinosis. Edema extending proximally throughout the supraspinatus muscle belly, consistent with an acute strain/partial tear. No muscle atrophy or fatty infiltration. BICEPS: Intact. CORACOACROMIAL ARCH: The undersurface of the acromion is minimally curved with no subacromial spur. Moderate acromioclavicular osteoarthritis. LABRUM/CAPSULE: No labral tear. Intact joint capsule. GLENOHUMERAL JOINT/MARROW: Mild degenerative cystic change at the lesser tuberosity. No acute osseous injury. Intact articular cartilage. No significant joint effusion. MR/MR shoulder RT wo con IMPRESSION: 1. Acute strain/partial tear of the supraspinatus muscle. Minimal supraspinatus and infraspinatus tendinosis. 2. Moderate acromioclavicular osteoarthritis.
== END 2024-02-21 19:23 | disposition home or self-care (01) ==
LOC: HO.MRI 19:22
PROVIDERS: PCP Internal Medicine; Visit Provider Orthopaedic Surgery
DX: M75.101 Unspecified rotator cuff tear or rupture of right shoulder, not specified as traumatic (principal); R29.898 Other symptoms and signs involving the musculoskeletal system
CPT/HCPCS: 73221

== ENCOUNTER 2024-03-29 10:37 | Outpatient (AMB) | payer OTHER, SELFPAY ==
--- NOTE | 2024-03-29 10:53 | A.OFFVIS_ITS ---
Vital Signs 03/29/24 10:54 Height 6 ft Weight 160 lb BMI 21.7 Intake Visit Reasons: OV- RT shoulder MRI review Intake Note: Garfield is a 59 year old male who presents today for an MRI review of his right shoulder. IMPRESSION: 1. Acute strain/partial tear of the supraspinatus muscle. Minimal supraspinatus and infraspinatus tendinosis. 2. Moderate acromioclavicular osteoarthritis Allergies tomato Allergy (Mild, Verified 03/29/24 10:56) Rash egg [EGGS] Allergy (Unknown, Verified 03/29/24 10:56) RASH orange [ORANGES] Allergy (Unknown, Verified 03/29/24 10:56) RASH CHOCOLATE Allergy (Unknown, Uncoded 02/16/24 10:21) RASH HPI HPI OV- RT shoulder MRI review: Details: Garfield is a 59 year old male who presents today for an MRI review of his right shoulder. [facility] Medical History Spondylolisthesis, lumbar region Chronic back pain Asthma Annual physical exam Asthma Surgical History No pertinent past surgical history Family History Father Prostate cancer Mother No problems noted. Social History Housing: House Patient Tobacco Use Status: Never used Tobacco e-Cigarette/Vaping Use: Never Used Current occupational status: employed Cognitive needs: No Hearing needs: No Vision needs: Yes Physical Exam Vital Signs: BMI result Body Mass Index 21.7 Extrem Other: Full ROM +H/N and 4+/5 EC TTP Bicipital groove and + O'diana's Results Reviewed Results Reviewed: IMPRESSION: 1. Acute strain/partial tear of the supraspinatus muscle. Minimal supraspinatus and infraspinatus tendinosis. 2. Moderate acromioclavicular osteoarthritis Assessment & Plan Assessment & Plan (1) Weakness of right shoulder: Code(s): R29.898 - Other symptoms and signs involving the musculoskeletal system Category: Medical Plan: PT (2) Tendinosis of rotator cuff: Code(s): M67.819 - Other specified disorders of synovium and tendon, unspecified shoulder Category: Medical Plan: PT. Surgery not indicated. MRI unimpressive. Orders: Orders PT Evaluation and Treatment Today M67.819 - Other specified disorders of synovium and tendon, unspecified shoulder Coding Level of Care Code Est Pt Level 3 (07391) Diagnoses Weakness of right shoulder R29.898 Tendinosis of rotator cuff M67.819
[2024-03-29 10:54] VITALS: BMI 21.7
== END 2024-03-29 11:14 | disposition home or self-care (01) ==
PROVIDERS: PCP Internal Medicine; Visit Provider Orthopaedic Surgery
DX: R29.898 Other symptoms and signs involving the musculoskeletal system (principal); M67.819 Other specified disorders of synovium and tendon, unspecified shoulder
CPT/HCPCS: 99213

== ENCOUNTER → 2024-03-29 10:37 | Outpatient (BNVA) | payer OTHER, SELFPAY | PROVIDERS: PCP Internal Medicine; Visit Provider Orthopaedic Surgery ==

== ENCOUNTER 2024-05-14 11:33 | Outpatient (AMB) | payer OTHER, SELFPAY ==
--- NOTE | 2024-05-14 11:59 | A.OFFPC_ITS ---
Vital Signs 05/14/24 12:00 Height 6 ft Weight 160 lb BMI 21.7 BP 106/68 Blood Pressure Location Lt brachial Position Sitting Pulse 78 Pulse Source Pulse Oximeter Pulse Oximetry (%) 96 Oxygen Delivery Method Room Air Intake Visit Reasons: Annual PE Intake Note: Pt is here today for PE. Allergies tomato Allergy (Mild, Verified 05/14/24 12:01) Rash egg [EGGS] Allergy (Unknown, Verified 05/14/24 12:01) RASH orange [ORANGES] Allergy (Unknown, Verified 05/14/24 12:01) RASH CHOCOLATE Allergy (Unknown, Uncoded 05/14/24 12:01) RASH Medication List - Last Reconciled 05/14/24 by Arleen Kerr MD albuterol sulfate 90 mcg/actuation (ProAir HFA) 2 puffs inhalation Q6H PRN ibuprofen 800 mg PO Q8H loratadine (Claritin) 10 mg PO DAILY montelukast 10 mg PO DAILY silodosin (Rapaflo) 8 mg PO DAILY terbinafine HCl 250 mg PO DAILY Tobacco use date assessed: 05/14/24 Dental Screening Dental Screen Date: 05/14/24 Did you have a dental visit in the last 12 months?: Yes Did you have a dental problem in the last 6 months where you did not have access to dental care?: No Was dental information given to patient?: Patient has dentist HPI Annual PE HPI Details Pt is for PE. [facility], [facility] Medical History (Updated 05/14/24 @ 12:55 by Arleen Kerr MD) Spondylolisthesis, lumbar region Chronic back pain Asthma Annual physical exam Asthma Surgical History No pertinent past surgical history Family History Father Prostate cancer Mother No problems noted. Social History Housing: House Patient Tobacco Use Status: Never used Tobacco e-Cigarette/Vaping Use: Never Used service: No Current occupational status: employed Cognitive needs: No Hearing needs: No Vision needs: Yes Questionnaire PHQ-9 Over the last 2 weeks, how often have you been bothered by any of the following problems? 1. Little interest or pleasure in doing things: not at all 2. Feeling down, depressed, or hopeless: not at all 3. Trouble falling or staying asleep, or sleeping too much: not at all 4. Feeling tired or having little energy: not at all 5. Poor appetite or overeating: not at all 6. Feeling bad about yourself - or that you are a failure or have let yourself or your family down: not at all 7. Trouble concentrating on things, such as reading the newspaper or watching television: not at all 8. Moving or speaking so slowly that other people could have noticed. Or the opposite - being so fidgety or restless that you have been moving around a lot more than usual: not at all 9. Thoughts that you would be better off or of hurting yourself in some way: not at all Total score: 0 Depression Screening Interpretation: Negative Depression Screening Done: Yes 32743 - PHQ-9 Billing: Yes Source: Developed by Drs. Stanislaw Prieto, Fela Helm, Román Pan and colleagues, with an educational elliot from [employer]. Thrive Questionnaire Date Thrive assessed: 05/14/24 I am a: Patient What is your living situation today?: I have a steady place to live Within the past 12 months, did the food you bought not last and you didn't have the money to get more?: I choose not to answer this question Within the past 12 months, did you worry whether your food would run out before you got money to buy more?: I choose not to answer this question Do you have trouble paying for medicines?: I choose not to answer this question Do you have trouble getting transportation to medical appointments?: I choose not to answer this question Do you have trouble paying your heating and electricity bill?: I choose not to answer this question Do you have trouble taking care of your child, family member or friend?: I choose not to answer this question Do you have trouble with day-to-day activities such as bathing, preparing meals, shopping, managing finances, etc.?: I choose not to answer this question Are you currently unemployed and looking for a job?: I choose not to answer this question Are you interested in more education?: I choose not to answer this question Please select the resources that you would like help with: None Currently or been in a relationship where the following occur: I choose not to answer THRIVE Score: 0 AUDIT C Alcohol Use Questionnaire (AUDIT-C) 1. How often do you have a drink containing alcohol?: Never 3. How often do you have six or more drinks on one occasion?: Never Total Score: 0 SEUN-7 AMB Questionnaire SEUN-7 Date SEUN - 7 assessed: 05/14/24 Feeling nervous, anxious, or on edge: 0 = Not at all Not being able to stop or control worryin = Not at all Worrying too much about different things: 0 = Not at all Trouble relaxin = Not at all Being so restless that it is hard to sit still: 0 = Not at all Becoming easily annoyed or irritable: 0 = Not at all Feeling afraid as if something awful might happen: 0 = Not at all Total SEUN-7 score (0-4 normal; 5-9 mild; 10-14 moderate; 15-21 severe): 0 Source: Developed by Drs. Stanislaw Prieto, Fela Helm, Román Pan and colleagues, with an educational elliot from [employer]. SEUN-7 Assessment Billing SEUN-7 Assessment Tool: SEUN-7 Assessment 52528 Review of Systems Const All systems reviewed & are unremarkable except as noted in HPI and below Reports no additional complaints Eyes Reports no additional complaints ENT Reports no additional complaints Card Reports no additional complaints Resp Reports no additional complaints GI Reports no additional complaints Reports no additional complaints Physical exam (Primary Care) Vital Signs: Last Vital Signs Pulse 78 05/14/24 12:00 BP 106/68 05/14/24 12:00 Pulse Ox 96 05/14/24 12:00 Oxygen Delivery Method Room Air 05/14/24 12:00 BMI result Body Mass Index 21.7 Tobacco/Smoking Status: Tobacco use Status Tobacco use date assessed 05/14/24 05/14/24 12:03 Patient Tobacco Use Status Never used Tobacco 05/14/24 12:03 e-Cigarette/Vaping Use Never Used 05/14/24 12:03 PHQ-9: PHQ-9 Score PHQ-9: Total score 0 05/14/24 12:33 Depression Screening Interpretation: Negative Thrive Assessment: Date of Thrive Assessment Date Thrive assessed 05/14/24 05/14/24 12:03 Currently or been in a relationship where the following occur: I choose not to answer Const General: no acute distress HENMT Head: Yes normal to inspection Ears: hearing grossly normal bilaterally General nose exam: Normal external nose present Mouth: Normal oral and palatal mucosa present Throat: Yes posterior oropharynx normal Eyes General: appearance normal, both eyes and all related structures Neck Neck: Yes no lymphadenopathy and Yes supple Resp Effort & Inspection: normal respiratory effort Auscultation: clear to auscultation bilaterally Cardio Rhythm: regular rhythm Heart sounds: S1 normal heart sound present and S2 normal heart sound present GI Inspection: Yes normal to inspection Palpation (GI): Soft to palpation Percussion: Yes normal to percussion Auscultation: normal bowel sounds Coding Level of Care Code Est Pt Prev Care 40-64y(41578) Diagnoses Annual physical exam Z00. Asthma J45.909 BPH (benign prostatic hyperplasia) N40.0 Additional Codes SEUN-7 Assessment Billing - SEUN-7 Assessment Tool: SEUN-7 Assessment 06607 ([id number]) Assessment & Plan Assessment & Plan (1) Annual physical exam: Code(s): Z00.00 - Encounter for general adult medical examination without abnormal findings Category: Medical Plan: Well-balanced diet regular exercise discussed with the patient he will be referred to GI for colonoscopy (2) Asthma: Comment: mild, controlled on Singuair Code(s): J45.909 - Unspecified asthma, uncomplicated Category: Medical Plan: Controlled on montelukast (3) BPH (benign prostatic hyperplasia): Code(s): N40.0 - Benign prostatic hyperplasia without lower urinary tract symptoms Category: Medical Plan: check PSA Orders: Orders Comprehensive Pierre. Panel Fast Today Z00.00 - Encounter for general adult medical examination without abnormal findings Complete Blood Count Auto Diff Today Z00.00 - Encounter for general adult medical examination without abnormal findings Lipid Panel Today Z00.00 - Encounter for general adult medical examination without abnormal findings UA CC w/rflx Micro + Cult Today Z00.00 - Encounter for general adult medical examination without abnormal findings Lipid Panel 1 Year N40.0 - Benign prostatic hyperplasia without lower urinary tract symptoms, Z00.00 - Encounter for general adult medical examination without abnormal findings UA w Microscopic Today N40.0 - Benign prostatic hyperplasia without lower urinary tract symptoms, Z00.00 - Encounter for general adult medical examination without abnormal findings PSA,Total (Free>4and<10) Today Z00.00 - Encounter for general adult medical examination without abnormal findings Comprehensive Pierre. Panel Fast 1 Year N40.0 - Benign prostatic hyperplasia without lower urinary tract symptoms, Z00.00 - Encounter for general adult medical examination without abnormal findings Complete Blood Count Auto Diff 1 Year N40.0 - Benign prostatic hyperplasia without lower urinary tract symptoms, Z00.00 - Encounter for general adult medical examination without abnormal findings PSA,Total (Free>4and<10) 1 Year N40.0 - Benign prostatic hyperplasia without lower urinary tract symptoms, Z00.00 - Encounter for general adult medical examination without abnormal findings Referrals Gastroenterology Referral Z00.00 - Encounter for general adult medical examination without abnormal findings Medications: Refilled montelukast 10 mg PO DAILY 90 tabs 3RF Discontinued silodosin (Rapaflo) must administer with a meal/food Discontinued Reason: Doctor's Order 8 mg PO DAILY 30 caps 2RF
[2024-05-14 12:00] VITALS: BP 106/68; PULSE 78; O2SAT 96; BMI 21.7
== END 2024-05-14 12:58 | disposition home or self-care (01) ==
PROVIDERS: PCP Internal Medicine; Visit Provider Internal Medicine
DX: Z00.00 Encounter for general adult medical examination without abnormal findings (principal); J45.909 Unspecified asthma, uncomplicated; N40.0 Benign prostatic hyperplasia without lower urinary tract symptoms

== ENCOUNTER → 2024-05-14 11:33 | Outpatient (BNVA) | payer OTHER, SELFPAY | PROVIDERS: PCP Internal Medicine; Visit Provider Internal Medicine | DX: Z00.00 Encounter for general adult medical examination without abnormal findings (principal); J45.909 Unspecified asthma, uncomplicated; N40.0 Benign prostatic hyperplasia without lower urinary tract symptoms | CPT/HCPCS: 96127 ==

== ENCOUNTER 2024-05-24 11:32 | Outpatient (AMB) | payer OTHER, SELFPAY ==
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
[2024-05-24 11:39] VITALS: BP 116/80; PULSE 69; O2SAT 94
== END 2024-05-24 12:06 | disposition home or self-care (01) ==
PROVIDERS: PCP Internal Medicine; Visit Provider Registered Nurse
DX: S46.812A Strain of other muscles, fascia and tendons at shoulder and upper arm level, left arm, initial encounter (principal); Z04.1 Encounter for examination and observation following transport accident

== ENCOUNTER → 2024-05-24 11:32 | Outpatient (BNVA) | payer OTHER, SELFPAY | PROVIDERS: PCP Internal Medicine ==

== ENCOUNTER 2024-05-28 07:45 | Outpatient (REF) | payer OTHER, SELFPAY ==
[2024-05-28 10:12] LABS: MANUAL DIFF FLAG NO
[2024-05-28 10:15] LABS: Appearance Urine Clear; Color Urine Yellow; Glucose Urine UA Negative (Negative); Leukocyte Esterase Urine Negative (Negative); Nitrite Urine Negative (Negative); Specific Gravity - Urine 1.015 (1.005-1.025); Urine Blood Negative (Negative); Urine Ketones Negative (Negative); Urine Protein Negative (Neg-Trace)
[2024-05-28 10:23] LABS: Bacteria Urine None Seen (None Seen); Hyaline Casts Urine 0-2 /LPF (0-2); RBC Urine 0-2 /HPF (0-2); Squamous Epithelial Cell Urine 0-2 /HPF (0-2); WBC Urine 0-5 /HPF (0-5)
[2024-05-28 10:31] LABS: Eosinophils Absolute Auto 0.1 X10*3/uL (0.0-0.4); Eosinophils Percent Auto 2.6 % (0-4); Hematocrit 45.5 % (42.0-52.0); Hemoglobin 15.1 g/dl (14.0-18.0); Imm Gran Abs Auto 0.02 X10*3/uL (0.00-0.03); Imm Gran Pct Auto 0.5 % (0.0-0.4); Lymphocytes Absolute Auto 1.1 X10*3/uL (1.2-4.9); Lymphocytes Percent Auto 27.8 % (20-40); Mean Corpuscular HGB Conc 33.2 g/dl (31.0-36.0); Mean Corpuscular Hemoglobin 30.9 pg (27.0-33.0); Mean Platelet Volume 10.3 fL (9.4-12.4); Monocytes Absolute Auto 0.4 X10*3/uL (0.1-1.2); Monocytes Percent Auto 9.6 % (2-11); Neutrophils Absolute Auto 2.3 x10*3/uL (2.0-8.3); Neutrophils Percent Auto 58.5 % (45-73); Platelet Count 271 X10*3/uL (160-400); Red Blood Count 4.89 X10*6/uL (4.60-5.80); Red Cell Distribution Width 12.2 % (11.0-16.0); White Blood Count 3.9 X10*3/uL (4.8-10.8)
[2024-05-28 10:55] LABS: PSA,Total (Free>4and<10) 0.92 ng/mL (0.00-4.00); PSA,Total (Free>4and<10) 0.95 ng/mL (0.00-4.00)
[2024-05-28 11:33] LABS: Alanine Aminotransferase 34 U/L (0-40); Albumin Level 4.2 g/dL (3.5-5.0); Alkaline Phosphatase 78 U/L (39-117); Anion Gap 10 (12-20); Aspartate Amino Transferase 29 U/L (5-37); Bilirubin Total 0.7 mg/dL (0.0-1.0); Blood Urea Nitrogen 12 mg/dL (9-16); Carbon Dioxide 31 mmol/L (22-29); Chloride 103 mmol/L (96-108); Cholesterol 162 mg/dL (<200); Estimated Glomerular Filt Rate > 60; Glucose Fasting 92 mg/dL (60-99); HDL Cholesterol 73 mg/dL (>40); LDL Cholesterol Calculated 80 mg/dL (<100); Potassium 4.1 mmol/L (3.3-5.1); Sodium 140 mmol/L (135-145); Triglycerides 45 mg/dL (<150)
== END 2024-05-28 07:46 | disposition home or self-care (01) ==
LOC: HO.HMGCLDS 07:45
PROVIDERS: Urology; PCP Internal Medicine; Visit Provider Internal Medicine
DX: Z00.00 Encounter for general adult medical examination without abnormal findings (principal); N40.0 Benign prostatic hyperplasia without lower urinary tract symptoms; Z12.5 Encounter for screening for malignant neoplasm of prostate
CPT/HCPCS: 36415; 80053; 80061; 81001; 84153; 85025

== ENCOUNTER 2024-06-19 16:56 | Outpatient (RCR) | payer OTHER, SELFPAY ==
--- NOTE | 2024-05-04 14:56 | MHC.PT.EP ---
[facility] [place] Office [place] Office [place] Office [address] Elizabeth Guan [address] [phone] F: [phone] F: [phone] F: [phone] F: [phone] Physical Therapy Plan of Care Date of Evaluation: 05/03/24 Date of Surgery: Diagnosis: RTC tendinosis (MD Dx) partial tear supraspinatus muscle, moderate ACJ OA (?suprascapular nerve prior injury) (PT Dx) (RS) [ End ] Assessment: Garfield is a pleasant 59 y.o. male who is referred to PT by Dr. Kashif David MD with Dx of RIGHT shoulder tendinosis of RTC. RIGHT shoulder partial supraspinatus tear and moderate ACJ OA (Seen on MRI). There also appears to be an old possible suprascapular nerve injury or impingement as there is significant atrophy of infraspinatus and supraspinatus muscle belly that is visualized and palpable. Patient impairments include poor posture, weakness in shoulder. 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 Patient will benefit from skilled PT to address aforementioned impairments and functional limitations to meet established goals. Frequency and Duration: The patient will be seen 2x/week for 4 weeks Short Term Goals: 2 weeks Patient demonstrates consistency and independence with HEP to self manage symptoms. Foot Tender Goals: 4 weeks Patient presents with increased L shoulder abduction strength 4+/5 to be able to do yard work tasks. 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 Treatment Plan: Modalities to reduce pain, spasms and effusion. Manual therapy to restore motion and function. Therapeutic exercise to improve strength and flexibility. Neuromuscular re-education for posture and balance. Therapeutic activities to return to functional activities of daily living. Electronically signed by: Katy Fleming, PT, DPT Please sign and return to therapist. Thank you for your referral.
--- NOTE | 2024-06-20 15:39 | MHC.PT.DC ---
[facility] [place] Office [place] Office [place] Office [address] Elizabeth Guan [address] [phone] F: [phone] F: [phone] F: [phone] F: [phone] Physical Therapy Discharge Report Diagnosis: RTC tendinosis (MD Dx) partial tear supraspinatus muscle, moderate ACJ OA (?suprascapular nerve prior injury) (PT Dx) (RS) [ End ] Date of Surgery: Date of Evaluation: 05/03/24 Date of Discharge: 06/20/24 Treatments to Date: 12 Cancellations to Date: No Shows to Date: Discharge Status: Achieved Goals Improved Function Independent with HEP Discharge Summary: Pt has made excellent progress since SOC. He has consistently had minimal to no pain. He has improved his score on SPADI outcome measure from 32/130 on initial PT evaluation to 2/130 at D/C. He is independent with HEP. He is being D/C from skilled PT at this time. I provided pt with printed, updated copy of HEP and theraband. Pt reports no further questions or concerns for PT at D/C Electronically signed by: Yessenia Garcia, PT, DPT Please sign and return to therapist. Thank you for your referral.
== END 2024-06-20 15:39 | disposition home or self-care (01) ==
LOC: HO.PT 16:56
PROVIDERS: PCP Internal Medicine; Visit Provider Orthopaedic Surgery
DX: M67.811 Other specified disorders of synovium, right shoulder (principal)
CPT/HCPCS: 97110; 97112; 97161; 97530

== ENCOUNTER 2024-07-17 05:57 | Outpatient (REF) | payer OTHER, SELFPAY | END 2024-07-17 05:58 | disposition home or self-care (01) | LOC: HO.NEURO 05:57 | PROVIDERS: PCP Internal Medicine; Visit Provider Physician Assistant | DX: M62.511 Muscle wasting and atrophy, not elsewhere classified, right shoulder (principal); M25.511 Pain in right shoulder | CPT/HCPCS: 95886; 95910 ==

== ENCOUNTER 2024-08-06 14:01 | Outpatient (RCR) | payer OTHER, SELFPAY | END 2024-08-06 16:16 | disposition home or self-care (01) | LOC: HO.PT 14:01 | PROVIDERS: PCP Internal Medicine; Visit Provider Physician Assistant | DX: M54.51 Vertebrogenic low back pain (principal) | CPT/HCPCS: 97110; 97161; 97530; 97535 ==

== ENCOUNTER 2025-03-18 08:58 | Outpatient (AMB) | payer OTHER, SELFPAY ==
--- NOTE | 2025-03-18 09:17 | MHC.OFFVIS ---
Intake Visit Reasons: Chronic RT. 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 He said that pulling a string or working with a machine became difficult. Since then he has been investigated by multiple physicians. He also sometime had pain in right shoulder area that was not explainable based upon his imaging. He continues to have this weakness and sometime pain and was here for explanation. He said that he had a needle examination test done but I could not fine that and [facility] computer. There was no swallowing or breathing difficulty or change in his speech. There was no change in his gait or walking. He never had any major accident of his neck or any significant neck symptoms. [facility] Medical History (Updated 03/18/25 @ 09:44 by Monika Gee MD) Spondylolisthesis, lumbar region Chronic back pain Asthma Annual physical exam Asthma Surgical History (Updated 03/12/25 @ 12:24 by Kelley Bello [facility]) [place] teeth extracted Family History Father Prostate cancer Mother No problems noted. Social History Housing: House Patient Tobacco Use Status: Never used Tobacco e-Cigarette/Vaping Use: Never Used service: No Current occupational status: employed Cognitive needs: No Hearing needs: No Vision needs: Yes Review of Systems Const Details: Constitutional:?No fever, chills, fatigue, weight loss, or night sweats. HEENT:?No headache, vision changes, hearing loss, nasal congestion, sore throat. Cardiovascular:?No chest pain, palpitations, orthopnea, PND, or leg swelling. Respiratory:?No cough, shortness of breath, wheezing, or hemoptysis. Gastrointestinal:?No nausea, vomiting, abdominal pain, diarrhea, or constipation. Genitourinary:?No dysuria, frequency, incontinence, or hematuria. Musculoskeletal:?No joint pain, stiffness, weakness, or muscle aches. Neurological:?No dizziness, syncope, seizures, numbness, tingling, weakness, tremors, memory loss. Psychiatric:?No anxiety, depression, mood swings, sleep disturbance, or hallucinations. Endocrine:?No heat/cold intolerance, polydipsia, polyuria, or hair/skin changes. Hematologic/Lymphatic:?No easy bruising, bleeding, or lymphadenopathy. Integumentary (Skin):?No rash, lesions, itching, or color changes. Allergic/Immunologic:?No seasonal allergies, hives, or recurrent infections. Physical Exam Neuro Other: Mental Status: Alert and oriented to person, place, and time. Normal attention. Normal spontaneous speech, fluency, and comprehension. No obvious issues with mood and memory. Affect is appropriate. Cranial Nerves: CN II: Visual veronica full to confrontation, visual acuity intact. CN III, IV, : Pupils equal, round, reactive to light and accommodation. Extraocular movements are normal. CN V: Facial sensation is normal. CN VII: Facial movements symmetrical. CN VIII: Hearing intact to bedside conversation is normal. CN IX, X: Palate elevates symmetrically. CN XI: Shoulder shrug and head turn symmetrical. CN XII: Tongue midline without atrophy or fasciculations. Motor: He has significant atrophy in periscapular muscles, both supra and infraspinatus, on the right side more than left. Mild and pectoralis major. Deep tendon reflexes are 1 to 2+ with flexor plantars. No fasciculations are noted. Mild weakness of oral muscles. Extrapyramidal: Full facial expressions and blinking. No rigidity. Movements are appropriate with no tremor or abnormality. Speech: Normal; no dysarthria or tremor. 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 This would typically result in the type of symptoms he is describing. Differential diagnosis would also include brachial plexopathy or neuropathy. He had an EMG nerve conduction study in July of last year that showed some abnormality suggestive of plexopathy but I would like to repeat that study again to have a more definitive picture. Orders: Orders Erythrocyte Sedimentation Rate Today M25.511 - Pain in right shoulder NE electromyogram (EMG) Today G71.02 - Facioscapulohumeral muscular dystrophy Creatine Kinase Total Today M25.511 - Pain in right shoulder NE nerve conduction velocity Today G71.02 - Facioscapulohumeral muscular dystrophy PT Evaluation and Treatment Today G71.02 - Facioscapulohumeral muscular dystrophy OT Evaluation and Treatment Today G71.02 - Facioscapulohumeral muscular dystrophy Coding Level of Care Code Tele Est Pt Level 5 (18595) Diagnoses Fascioscapulohumeral muscular dystrophy G71.02
--- OUTSIDE RECORDS SUMMARY | 2025-03-18 09:21 | XMS_ITS | Clinical Summary ---
Author Organization [facility] Address [address] [place] [address] Care Team Providers Care Earth Burner Name Role Phone Unavailable Primary Care Provider Unavailabl e Social History Tobacco Use Types Packs/Day Years Used Date Smoking Tobacco: Never Assessed Sex and Gender Information Value Date Recorded Sex Assigned at Not on file Gender Identity Not on file Sexual Orientation Not on file Plan of Treatment Not on file
--- OUTSIDE RECORDS SUMMARY | 2025-03-18 09:21 | XMS_ITS | Encounter Summary ---
Author Organization [employer] Address [address] [facility] 7t [place] [address] Care Team Providers Care Retail Sales Vitamin Consultant Name Role Phone Unavailable Primary Care Provider Unavailabl e Encounter Details Date Type Department Care Team (Latest Contact Info) Description 12/14/2018 Abstract [facility] CONVERSIONS Dental, Provider, DDS Social History Tobacco Use Types Packs/Day Years Used Date Smoking Tobacco: Never Assessed Sex and Gender Information Value Date Recorded Sex Assigned at Male 06/07/2022 10:20 AM EDT Legal Sex Male 10:20 AM EDT Gender Identity Not on file Sexual Orientation Not on file documented as of this encounter Plan of Treatment Not on file documented as of this encounter Visit Diagnoses Not on filedocumented in this encounter
== END 2025-03-18 12:44 | disposition home or self-care (01) ==
LOC: HO.HSM 08:59
PROVIDERS: PCP Internal Medicine; Referring Provider Internal Medicine; Visit Provider Psychiatry & Neurology Neurology
DX: G71.02 Facioscapulohumeral muscular dystrophy (principal)
CPT/HCPCS: 99214

== ENCOUNTER 2025-03-23 09:06 | Outpatient (AMB) | payer OTHER, SELFPAY ==
--- OUTSIDE RECORDS SUMMARY | 2025-03-23 09:07 | XMS_ITS | Encounter Summary ---
Author Organization [employer] Address [address] [facility] 7t [place] [address] Care Team Providers Care Tool Filer Hand Name Role Phone Unavailable Primary Care Provider Unavailabl e Encounter Details Date Type Department Care Team (Latest Contact Info) Description 12/14/2018 Abstract [facility] CONVERSIONS Dental, Provider, DDS Social History Tobacco [...]
--- OUTSIDE RECORDS SUMMARY | 2025-03-23 09:07 | XMS_ITS | Encounter Summary ---
Author Organization [facility] Address [address] [place] [address] Care Team Providers Care Range Mounter Name Role Phone Arleen Kerr MD Primary Care Provider [phone] Reason for Visit * Reason Onset Date Comments Knee Pain 03/21/2025 Encounter Details Date Type Department Care Team (Late st Contact Info) Description 03/21/2025 Telephone Orthopedic Surgery - [address] [phone] Santos Morales DPM [address] [address] Knee Pain Social History Tobacco Use Types Packs/Day Years Used Date Smoking Tobacco: Never Smokeless Tobacco: Never Alcohol Use Standard Drinks/Week Comments No 0 (1 standard drink = 0.6 oz pur e alcohol) Interpersonal Safety Answer Date Record ed Physical Abuse 12/07/2024 Verbal Abuse 12/07/2024 Sex and Gender Information Value Date Recorded Sex Assigned at Not on file Legal Sex Male 9:12 AM EST Gender Identity Not on file Sexual Orientation Not on file documented as of this encounter Progress Notes * Analia Stewart - 03/21/2025 4:01 PM EDT Patient requested a FU appt next 03/28 @ 3:15 PM. He is scheduled. * Santos Morales DPM - 03/21/2025 3:51 PM EDT He should definitely make a follow up to be seen so i can delineate where its coming from a direct him from there * Analia Stewart - 03/21/2025 2:58 PM EDT Patient is working, and cannot leave ,so he Declined an appt for today with Dr Morales. States hewill continue to ice his knee. nd if it get worse, he will call his PCP or go to Urgent Care. May call our office next week if continues. 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 States feels ok @ the moment, as she has been icing it. He can be reached @ [phone] , than * Analia Stewart - 03/21/2025 12:12 PM EDT Patient is calling stating that he had a recent PO appt on 03/15 ,he had Surgery on his Right foot and now he states that just below his knee it is Swollen and stiff. He states he just returned to work after being out for 3 months PO. Can this be related to his Surgery or should he contact his PCP office. He states his Right leg is weaker since his SX. HE thinks it may need to be drained has beenicing it. Please call him back @ [phone] .Thanks. documented in this encounter Plan of Treatment Upcoming Encounters Date Type Department Care Team (Late st Contact Info) Description 03/28/2025 3:15 PM EDT Office Visit Orthopedic Surgery [facility] [address] [phone] Santos Morales DPM [address] [address] 06/17/2025 10:00 AM EST Office Visit Orthopedic Surgery [facility] [address] [phone] Santos Morales, DPM [address] [facility] [address] [place] [address] documented as of this encounter Visit Diagnoses Not on filedocumented in this encounter Care Teams Range Mounter Relationship Specialty Start Date End Date Arleen Kerr MD [address] [place] [phone] PCP - General Internal Medicine 12/05/24 documented as of this encounter
--- OUTSIDE RECORDS SUMMARY | 2025-03-23 09:07 | XMS_ITS | Clinical Summary ---
Author Organization [facility] Address [address] [place] [address] Care Team Providers Care Certified Professional Ergonomist Name Role Phone Unavailable Primary Care Provider Unavailabl e Social History Tobacco Use Types Packs/Day Years Used Date Smoking Tobacco: Never Assessed Sex and Gender Information Value Date Recorded Sex Assigned at Not on file Gender Identity Not on file Sexual Orientation Not on file Plan of Treatment Not on file
[2025-03-23 09:13] VITALS: BP 106/70; PULSE 70; RESP 16; TEMP 36.7; O2SAT 97; BMI 21.2
--- NOTE | 2025-03-23 09:13 | AM.OFFWIN_ITS ---
Intake Vital Signs 03/23/25 09:13 Height 6 ft Weight 156 lb BMI 21.2 BP 106/70 Blood Pressure Location Lt brachial Position Sitting Respiration 16 Pulse 70 Pulse Source Pulse Oximeter Temp 98.1 F Temp Source Oral Pulse Oximetry (%) 97 Oxygen Delivery Method Room Air Intake Visit Reasons: EP Swelling below rt knee -tennis ball size, cyst? Intake Note: Pt is here today c/o Rt knee below ?cyst Patient Tobacco Use Status: Never used Tobacco Allergies tomato Allergy (Mild, Verified 05/24/24 11:38) Rash egg (EGGS) Allergy (Unknown, Verified 05/24/24 11:38) RASH orange (ORANGES) Allergy (Unknown, Verified 05/24/24 11:38) RASH CHOCOLATE Allergy (Unknown, Uncoded 05/24/24 11:38) RASH Medication List - Last Reconciled 03/23/25 by Christ Mondragon MD albuterol sulfate 90 mcg/actuation (ProAir HFA) 2 puffs inhalation Q6H PRN loratadine (Claritin) 10 mg PO DAILY montelukast 10 mg PO DAILY HPI EP Swelling below rt knee -tennis ball size, cyst? HPI Details Patient presents with swelling below right knee cap No redness, tenderness, lacerations or drainage Patient had been kneeling with knee pads PFSH Medical History (Updated 03/23/25 @ 09:37 by Christ Mondragon MD) Spondylolisthesis, lumbar region Chronic back pain Asthma Annual physical exam Asthma Surgical History (Updated 03/12/25 @ 12:24 by Kelley Bello CMA) [place] teeth extracted Family History Father Prostate cancer Mother No problems noted. Social History Housing: House Patient Tobacco Use Status: Never used Tobacco e-Cigarette/Vaping Use: Never Used service: No Current occupational status: employed Cognitive needs: No Hearing needs: No Vision needs: Yes Review of Systems Const Denies chills, Denies fatigue, Denies fever(s), Denies headache(s) and Denies weakness ENT Denies dizziness and Denies headache(s) Card Denies dyspnea Resp Denies cough, Denies dyspnea, Denies wheezing and Denies other ( shortness of breath) Musc Denies numbness and Denies tingling Skin/Breast Details: Swelling below kneecap-see HPI Neuro Denies dizziness, Denies headache(s), Denies numbness, Denies tingling, Denies paresthesias and Denies weakness Psych Denies anxiety and Denies depression Endo Denies fatigue Aller/Immun Denies wheezing Physical Exam Vital Signs: Last Vital Signs Temp 98.1 F 03/23/25 09:13 Pulse 70 03/23/25 09:13 Resp 16 03/23/25 09:13 BP 106/70 03/23/25 09:13 Pulse Ox 97 03/23/25 09:13 Oxygen Delivery Method Room Air 03/23/25 09:13 BMI result Body Mass Index 21.2 Const General: no acute distress and well developed Nutritional Appearance: well nourished Orientation/consciousness: patient oriented x3 HEENT Head: Yes normocephalic and Yes atraumatic Eyes General: appearance normal, both eyes and all related structures Pupils: Equal, round and reactive pupils present EOM: EOMs intact bilaterally Resp Effort & Inspection: normal respiratory effort Neuro General: patient oriented x3 and gait normal Cranial nerves: Yes Equal, round and reactive pupils present Extrem Other: 8 cm diameter fluctuant swelling over proximal de la rosa, inferior to patella No erythema or warmth Nontender Psych Affect: normal affect Assessment & Plan Assessment & Plan (1) Infrapatellar bursitis of right knee: Code(s): M70.51 - Other bursitis of knee, right knee Plan: Stay off of knee - keep pressure off knee and no kneeling Elevate knee Cool packs/ice NSAIDs; will send script for ibuprofen 800 mg t.i.d. Watch for any breaks in skin, increased swelling, tenderness or redness. Medications: New ibuprofen 800 mg PO Q8H PRN 42 tabs 0RF pain 14 days Coding Level of Care Code Est Pt Level 3 (13719) Diagnoses Infrapatellar bursitis of right knee M70.51
== END 2025-03-23 09:42 | disposition home or self-care (01) ==
PROVIDERS: PCP Internal Medicine; Visit Provider Family Medicine
DX: M70.51 Other bursitis of knee, right knee (principal)

== ENCOUNTER 2025-04-01 09:51 | Outpatient (REF) | payer OTHER, SELFPAY ==
--- NOTE | 2025-04-01 10:01 | EMG_ITS ---
Chief complaint/brief history- facioscapulohumeral musclar dystrophy, rt side weakness Referred by Dr Gee Procedure done NCV/EMG Bilateral median and ulnar motor and sensory studies were performed bilateral radial sensory studies were performed an EMG needle examination was performed. Impression: 1. Myopathic features were noted in bilateral periscapular musculature 2. Mild left ulnar neuropathy across elbow MTDD
--- OUTSIDE RECORDS SUMMARY | 2025-04-01 10:47 | XMS_ITS | Clinical Summary ---
Author Organization [facility] Address [address] [place] [address] Care Team Providers Care Chemical Dependency Nurse Name Role Phone Unavailable Primary Care Provider Unavailabl e Social History Tobacco Use Types Packs/Day Years Used Date Smoking Tobacco: Never Assessed Sex and Gender Information Value Date Recorded Sex Assigned at Not on file Gender Identity Not on file Sexual Orientation Not on file Plan of Treatment Not on file
--- OUTSIDE RECORDS SUMMARY | 2025-04-01 10:47 | XMS_ITS | Encounter Summary ---
Author Organization [employer] Address [address] [facility] 7t [place] [address] Care Team Providers Care Non Destructive Testing Inspector Name Role Phone Unavailable Primary Care Provider Unavailabl e Encounter Details Date Type Department Care Team (Latest Contact Info) Description 12/14/2018 Abstract [facility] CONVERSIONS Dental, Provider, DDS Social History Tobacco [...]
--- OUTSIDE RECORDS SUMMARY | 2025-04-01 10:47 | XMS_ITS | Clinical Summary ---
Author Organization [address] [facility] Address [address] [place] [address] Phone Care Team Providers Care Clam Grower Name Role Phone Arleen Kerr MD Primary Care Provider [phone] Allergies Active Allergy Reactions Criticality Noted Date Comments Chocolate 09/16/2017 Other Reaction(s): Rash/Dermatitis Patient eats cocoa with no reaction. He thinks it happens if eats frequently Stover And Derivatives 05/18/2017 Egg 11/15/2016 Other Reaction(s): Rash/Dermatitis Patient eats eggs occasionally with no reaction. He thinks it happens if eats frequently Tomato 11/15/2016 Other Reaction(s): Rash/Dermatitis thinks it happens if eats Frequently but eats pizza with no reaction Medications diclofenac (VOLTAREN) 1 % topical gel if needed. 08/15/2023 Active loratadine (CLARITIN) 10 mg tablet Take 1 tablet (10 mg total) by mouth 1 (one) time each day. 05/23/2018 Active inhalational spacing device inhaler 09/16/2017 Active montelukast (SINGULAIR) 10 mg tablet Take 1 tablet (10 mg total) by mouth 1 (one) time each day. Active meloxicam (MOBIC) 15 mg tablet Take 1 tablet (15 mg total) by mouth 1 (one) time each day. 30 tablet 03/14/2025 5 Active Active Problems Problem Noted Date Diagnosed Date Cervical spondylosis 10/05/2024 Assessment & Plan (10/05/2024 4:17 PM EST): Mr. Rosario admits to some neck discomfort on occasion depending on how he slept. He does not endorse radiation of pain from his neck into the arms. He does have trouble with the right greater than left shoulder. He saw Dr. Lazo who thought that the trouble might be coming from his neck. Mr. Rosario is neurologically intact. He has good strength in all major muscle groups. The MRI of the cervical spine from [place] dated September 13, 2024 revealed multilevel mild degenerative changes but no significant spinal nor foraminal stenosis. I do not think that his cervical spine findings are related to his shoulder trouble. Lumbar disc herniation 10/05/2024 Assessment & Plan (10/05/2024 4:10 PM EST): Mr. Rosario describes intermittent low back pain often related to increased physical activity such as yard work or when he was having construction done in his house. He has pain in his right foot and is scheduled for right foot surgery with Dr. Morales but denies any radiation of pain from the low back down the right leg. Neurologically he is intact. His MRI of the lumbar spine revealed mild degenerative changes with desiccation and loss of disc height at L5-S1 as well as some Modic changes in the adjacent endplates. He has a right sided L5-S1 disc herniation with caudal migration and likely compression of the traversing S1 nerve root. Fortunately he does not describe any pain associated with that. Right foot pain 07/19/2024 Arthritis of both feet 07/19/2024 Hammertoes of both feet 07/19/2024 Intermittent asthma 05/16/2024 Chronic seasonal allergic rhinitis due to pollen 12/26/2017 Seasonal allergic conjunctivitis 12/26/2017 Arthritis, lumbar spine 05/06/2017 Overview (05/16/2024): Used to see chiropractor Encounters Date Type Department Care Team Description 03/21/2025 Telephone Orthopedic Surgery [facility] [address] [phone] Santos Morales DPM Knee Pain 03/14/2025 9:45 AM EDT Office Visit Orthopedic Surgery [facility] [address] [phone] Santos Morales DPM Right foot pain (Primary Dx); Swelling of right foot 03/11/2025 3:30 PM EDT Treatment [facility] [address] [phone] Jax Tena, PT Difficulty walking (Primary Dx); Post-operative state 03/08/2025 10:30 AM EDT Treatment Outpatient [address] [phone] Jax Tena, PT Difficulty walking (Primary Dx); Post-operative state 03/05/2025 11:30 AM EDT Treatment Outpatient [address] [phone] Kavitha Ruggiero, FERRYBOAT [place] Difficulty walking (Primary Dx); Post-operative state 03/01/2025 2:00 PM EDT Treatment Outpatient [address] [phone] Kavitha Ruggiero, FERRYBOAT [place] Difficulty walking (Primary Dx) 02/28/2025 9:30 AM EDT Office Visit Orthopedic Surgery - [address] [phone] Santso Morales DPM Post-operative state (Primary Dx) 02/25/2025 11:00 AM EDT Treatment Outpatient [address] [phone] Kavitha Ruggiero, FERRYBOAT [place] Difficulty walking (Primary Dx); Post-operative state 02/21/2025 11:00 AM EDT Treatment Outpatient [address] [phone] HoustonrKavitha, FERRYBOAT [place] Difficulty walking (Primary Dx); Post-operative state 02/18/2025 11:00 AM EDT Treatment Outpatient Rehabilitation [address] [phone] Kavitha Ruggiero, FERRYBOAT [place] Difficulty walking (Primary Dx); Post-operative state 02/15/2025 11:30 AM EDT Treatment Outpatient Rehabilitation - [address] [phone] Kavitha Ruggiero PTA Difficulty walking (Primary Dx); Post-operative state 02/12/2025 2:30 PM EDT Evaluation Outpatient Rehabilitation - [address] [phone] Jax Tena PT Difficulty walking (Primary Dx); Post-operative state 02/12/2025 Plan of Care Documentation Outpatient Rehabilitation - [address] [phone] 02/07/2025 9:45 AM EDT Office Visit Orthopedic Surgery [place] [address] [phone] Santos Morales, DPM Post-operative state (Primary Dx) 01/17/2025 10:15 AM EDT Office Visit Orthopedic Surgery [place] [address] [phone] Santos Morales, DPM Post-operative state (Primary Dx) 01/03/2025 10:15 AM EDT Office Visit Orthopedic [place] [phone] [phone] Santos Morales, DPM Post-operative state (Primary Dx) from Last 3 Months Immunizations Name Administration Dates Next Due Influenza Quadravalent, 0.5ml (Fluad) 65yo and o lder 05/12/2022 Influenza Quadravalent, MDCK , 0.5ml, with preservative (Flucelvax) 6mo and older 05/06/2017 Influenza Quadrivalent, 0.5m l, preservative free (Fluarix; FluLaval; Fluzone) ages 6mo and older (Afluria) 3yo and older 05/20/2023 Influenza Quadrivalent, with preservative (Fluzone; Afluria) 6mo and older 05/14/2021,05/22/2020 Influenza trivalent, with pr eservative (Fluzone; Afluria) 6mo and older 04/20/2024 Pneumococcal polysaccharide 23 valent (Pneumovax 23) 2yo and older 05/06/2017 Zoster recombinant (Shingrix) 19yo and older 03/2024,07/07/2023 Surgical History Surgery Date Site/Laterality Comments WISDOM TOOTH EXTRACTION PROCEDURE: HISTORICAL WISDOM TEETH EXTRACTION OTHER SURGICAL HISTORY 10/06/2024 - 11/05/2024 RIGHT SI Medical History Medical History Date Comments H/O seasonal allergies DX:H/O se asonal allergies Intermittent asthma DX:Intermitt ent asthma Arthritis, lumbar spine 05/06/2017 DX:Arthr itis, lumbar spine; COMMENT: Used to see chiropractor Low back pain Neck pain GERD (gastroesophageal reflux disease) Joint pain Family History Medical History Relation Name Comments Prostate cancer Father Glaucoma Mother rash Glaucoma Sister Relation Name Status Comments Father Mother Sister Social History Tobacco Use Types Packs/Day Years Used Date Smoking Tobacco: Never Smokeless Tobacco: Never Tobacco Cessation:Counseling Given: Not Answered Alcohol Use Standard Drinks/Week Comments No 0 (1 standard drink = 0.6 oz pur e alcohol) Interpersonal Safety Answer Date Record ed Physical Abuse 12/07/2024 Verbal Abuse 12/07/2024 Sex and Gender Information Value Date Recorded Sex Assigned at Not on file Legal Sex Male 9:12 AM EST Gender Identity Not on file Sexual Orientation Not on file Obstetrics History Last Filed Vital Signs Vital Sign Reading Time Taken Comments Blood Pressure 110/77 12/07/2024 9:37 AM EDT Pulse 55 12/07/2024 9:37 AM EDT Temperature 36.5 C (97.7 F) 12/07/2024 9:28 AM EDT Respiratory Rate 16 12/07/2024 9:28 AM EDT Oxygen Saturation 100% 12/07/2024 9:37 AM EDT Inhaled Oxygen Concentration - - Weight 70.8 kg (156 lb) 01/17/2025 10:30 AM EDT Height 182.9 cm (6' 0.01 ) 01/17/2025 10:30 AM E DT Body Mass Index 21.15 01/17/2025 10:30 AM EDT Plan of Treatment Upcoming Encounters Date Type Department Care Team (Late st Contact Info) Description 04/03/2025 2:30 PM EDT Office Visit Orthopedic Surgery - [place] [address] [place], [place] [address] [phone] Santos Morales, DPM 175 [facility] [address] [place] [address] Health Maintenance Due Date Last Done Comments DTaP,Tdap,and Td Vaccines (1 - Tdap) 1986 Hepatitis B Vaccines (1 of 3 - 19+ 3-dose series) 1986 Pneumococcal Vaccine: 50+ Years (2 of 2 - PCV) 05/06/2018 05/06/2017 Cholesterol Screening (Lipid Panel) 09/07/2023 05/27/2018 HIV Screening 09/07/2023 Hepatitis C Screening 09/07/2023 Social Influencers of Health Screening 09/07/2023 Depression Screening 08/08/2024 Influenza Vaccine (#1) 2025 , 05/20/2023, 05/12/2022, Additional history exists Colorectal Cancer Screening: Colonoscopy 05/23/2028 05/23/2018 Zoster Vaccines Completed 09/15/2023, 07/07/2023 COVID-19 Vaccine Completed 05/09/2024, 08/2022, 05/21/2022, Additional history exists HIB Vaccines Aged Out No longer eligi ble based on patient's age to complete this topic HPV Vaccines Aged Out No longer eligi ble based on patient's age to complete this topic Hepatitis A Vaccines Aged Out No long er eligible based on patient's age to complete this topic IPV Vaccines Aged Out No longer eligi ble based on patient's age to complete this topic MMR Vaccines Aged Out No longer eligi ble based on patient's age to complete this topic Meningococcal ACWY Vaccine Aged Out N o longer eligible based on patient's age to complete this topic Meningococcal B Vaccine Aged Out No l onger eligible based on patient's age to complete this topic RSV Immunization Patients Under 20 months Aged Out No longer eligible based on patient's age to complete this topic Varicella Vaccines Aged Out No longer eligible based on patient's age to complete this topic Medical Devices Implanted Type Area Mechanic Marine Engine Device Identifier Shelf Expiration Date Model / Serial / Lot Plate Lapidus 3h Rght No Arm - Sn/A - [id number] Implanted:Qty: 1 on 12/07/2024 by Santos Morales DPM at [facility] Internal and External Fixation Right: Foot [employer] [id number] / N/A / N/A Screw Lcking Plate 3.5x24mm R3con - Sn/A - [id number] Implanted:Qty: 1 on 12/07/2024 by Santos Morales DPM at [facility] Internal and External Fixation Right: Foot [employer] [id number] / N/A / N/A Screw Lcking Plate 3.5x22mm R3con - Sn/A - [id number] Implanted:Qty: 1 on 12/07/2024 by Santos Morales DPM at [facility] Internal and External Fixation Right: Foot [employer] [id number] / N/A / N/A Screw R3con Non Lcking Plate 3.5x24mm - Sn/A - [id number] Implanted:Qty: 1 on 12/07/2024 by Santos Morales DPM at [facility] Internal and External Fixation Right: Foot [employer] [id number] / N/A / N/A Screw Bone Recon 3.5x20mm Lcking - Sn/A - [id number] Implanted:Qty: 1 on 12/07/2024 by Santos Morales DPM at [facility] Internal and External Fixation Right: Foot [employer] [id number] / N/A / N/A [employer] Nitinol Staple System; Straight Staple Kit Implanted:Qty: 1 on 12/07/2024 by Santos Morales DPM at [facility] Right: Foot [employer] 08/07/2029 [id number] / N/A / [id number] Procedures Procedure Name Priority Date/Time Associated Diagnosis Comments XR FOOT 3+ VIEWS RIGHT Routine 01/17/2025 10:27 AM EDT Post-operative state XR FOOT 3+ VIEWS RIGHT Routine 01/03/2025 10:37 AM EDT Post-operative state LIPID PANEL Routine 05/27/2018 COLONOSCOPY Routine 05/23/2018 from Last 3 Months or Most Recently Relevant to Health Maintenance Results * XR Foot 3+ Views Right (01/17/2025 10:27 AM EDT) Only the most recent of2 resultswithin the time period is included. Anatomical Region Laterality Modality Lower Extremities, Foot Right Computed Radiography Narrative 01/17/2025 12:46 PM EDT Right foot 3 views nonweightbearing: Correction is maintained in good rectus alignment. Normal postoperative healing. Santos Morales DPM IMG XR PROCEDURES Final Res ult * Lipid panel (05/27/2018) LDL/HDL Ratio 2 0 - 4 Triglycerides 41 0 - 150 mg/dL Cholesterol 149 0 - 200 mg/dL HDL 74 >=40 mg/dL LDL Cholesterol 67 0 - 100 mg/dL Blood Venous blood specimen / Unknown Historical Provider LAB BLOOD ORDERABLES Ly l Result * Colonoscopy (05/23/2018) Colonoscopy no interpreta tion,abstr acted Anatomical Region Laterality Modality Other Historical Provider HEALTH MAINTENANCE Final Result from Last 3 Months or Most Recently Relevant to Health Maintenance Insurance [facility] Advance Directives * Full Code - Default (Latest Code Status on File) Date Activated Date Inactivated Comments 12/07/2024 6:40 AM 12/07/2024 12:49 PM This is order is used when code status has not been discussed with the patient, or code status is otherwise unknown/unconfirmed To update the patient's code status, place a code status order. Do not modify or discontinue any currently active code status orders. Care Teams Clam Grower Relationship Specialty Start Date End Date Arleen Kerr MD [address] [place] [address] PCP - General Internal Medicine 12/05/24
== END 2025-04-01 09:52 | disposition home or self-care (01) ==
LOC: HO.NEURO 09:51
PROVIDERS: PCP Internal Medicine; Visit Provider Psychiatry & Neurology Neurology
DX: G71.02 Facioscapulohumeral muscular dystrophy (principal)
CPT/HCPCS: 95885; 95886; 95913

== ENCOUNTER → 2025-04-01 10:01 | Outpatient (BNV) | payer OTHER, SELFPAY | PROVIDERS: PCP Internal Medicine; Visit Provider Psychiatry & Neurology Neurology | DX: G56.22 Lesion of ulnar nerve, left upper limb (principal); G72.9 Myopathy, unspecified | CPT/HCPCS: 95886; 95913 ==

== ENCOUNTER 2025-04-15 11:44 | Outpatient (AMB) | payer OTHER, SELFPAY ==
--- OUTSIDE RECORDS SUMMARY | 2025-04-11 11:30 | XMS_ITS | Encounter Summary ---
Author Organization [facility] Address [address] [place] [address] Care Team Providers Care Lieutenant Ballistics Name Role Phone Arleen Kerr MD Primary Care Provider [phone] Reason for Referral * Orthopedic (Routine) - Pending Review Specialty Diagnoses / Procedures Referred By Corine nicole Referred To Contact Orthopedic Surgery / Orthopaedic Surgery Diagnoses Hemorrhagic prepatellar bursitis of right knee Procedures L Inj/Asp: R patellar bursa Alejandro Rodas MD [address] [address] Phone: tel: fax: Referral ID Status Reason Start Date Expiration Date V isits Requested Visits Authorized [id number] Pending Review 04/11/2025 04/11/2026 1 1 Reason for Visit * Reason Comments Consult Right knee pain Encounter Details Date Type Department Care Team (Late st Contact Info) Description 04/11/2025 11:30 AM EDT Consult Orthopedic Surgery - [place] [address] [address] Alejandro Rodas MD [address] [address] Hemorrhagic prepatellar bursitis of right knee (Primary Dx); Right knee pain; Right leg weakness Social History Tobacco Use Types Packs/Day Years [...] on file documented as of this encounter Last Filed Vital Signs Vital Sign Reading Time Taken Comments Blood Pressure - - Pulse - - Temperature - - Respiratory Rate - - Oxygen Saturation - - Inhaled Oxygen Concentration - - Weight 72.1 kg (159 lb) 04/11/2025 11:44 AM EDT Height 182.9 cm (6') 04/11/2025 11:44 AM EDT Body Mass Index 21.56 04/11/2025 11:44 AM EDT documented in this encounter Progress Notes * Alejandro Rodas MD - 04/11/2025 11:30 AM EDT Images from the original note were not included. * Alejandro Rodas MD - 04/11/2025 11:30 AM EDTAssociated Order(s): L Inj/Asp: R patellar bursa Post-Procedure Diagnose(s): Hemorrhagic prepatellar bursitis of right knee [facility] Date: 04/11/2025 Reason for visit: Right anterior knee swelling and stiffness; subacute and atraumatic Primary Care Physician: Arleen Kerr MD Cost Manager: None required HPI Garfield Rosario is a 60 y.o. year old male who presents today for evaluation of his right knee. He has noted some swelling over the right inferior anterior knee over the last 3 weeks. He was kneelingon a scooter nonweightbearing from a right foot surgery which occurred 12/07/2024. He was nonweightbearing for at least 8 or 9 weeks. He denies any other traumatic injuries to the anterior knee. At theend of the day the area of swelling can feel stiff, but is not significantly painful. He has not had swelling like this before around the knee. He did have the swelling aspirated by his back doctor about 2 weeks ago but he does not believe that anything was injected. I did see him as a curbside consult last week with Dr. Morales explained that this was likely prepatellar bursitis. I recommended symptomatic management with diclofenac gel, compression, and avoiding pressure to the area. He returns today stating that the swelling has started to decrease but is still quite prominent. He has been using the gel along with icing at night. He wears a knee compression sleeve while at work and also tries to ice the knee at work. He has talked to friends at work who have had similar issues explained that it can take months to go away. He is hoping for a faster resolution. He also notes persistent weakness involving the right leg since he was nonweightbearing for so long. He feels that physical therapy did not really address the weakness in his right leg. Today he is ambulating unassisted. He denies any recent fevers, chills, sweats. Denies any unintended weight loss. Patient Active Problem List Diagnosis Arthritis, lumbar spine Chronic seasonal allergic rhinitis due to pollen Intermittent asthma Seasonal allergic conjunctivitis Right foot pain Arthritis of both feet Hammertoes of both feet Cervical spondylosis Lumbar disc herniation Past Surgical History: Procedure Laterality Date OTHER SURGICAL HISTORY 10/2024 RIGHT SI WISDOM TOOTH EXTRACTION PROCEDURE: HISTORICAL WISDOM TEETH EXTRACTION Current Outpatient Medications Medication Instructions diclofenac (VOLTAREN ARTHRITIS PAIN) 4 g, Topical, 2 times daily diclofenac (VOLTAREN) 1 % topical gel if needed. inhalational spacing device inhaler loratadine (CLARITIN) 10 mg tablet 1 tablet, Daily meloxicam (MOBIC) 15 mg, oral, Daily montelukast (SINGULAIR) 10 mg, Daily Allergies Allergen Reactions Chocolate Other Reaction(s): Rash/Dermatitis Patient eats cocoa with no reaction. He thinks it happens if eats frequently Guayanilla And Derivatives Egg Other Reaction(s): Rash/Dermatitis Patient eats eggs occasionally with no reaction. He thinks it happens if eats frequently Tomato Other Reaction(s): Rash/Dermatitis thinks it happens if eats Frequently but eats pizza with no reaction Social History Tobacco Use Smoking status: Never Smokeless tobacco: Never Substance Use Topics Alcohol use: No Drug use: No Physical Exam: Vitals: 04/11/25 1144 Weight: 72.1 kg (159 lb) Height: 1.829 m (72 ) Well-appearing thin male, no apparent distress, alert and oriented. BMI 22. On examination of the right knee there is a area of focal swelling involving the prepatellar bursa overlying the inferior patellar tendon and superior tibial tubercle. This measures about 5 cm long by 3 cm wide by 2 cm high. There is a palpable fluctuance. No overlying skin rashes, erythema, or warmth. No knee effusion. Knee range of motion is full and ligamentously stable. Distally neurovascularly intact. 4/5 strength IP/Q. Labs: No results found for: WBC , HCT , PLT No results found for: NA , K , EGFR , ALBUMIN , BILITOT , AST , ALT , ALKPHOS , HGBA1C No results found for: INR , PTT No results found for: SEDRATE , CRP , RF , URICACID , BASIL Imagin views of the right knee obtained today including AP, Goldstein, lateral, sunrise were reviewed. They show soft tissue swelling overlying tibial tubercle without any obvious foreign body, subcutaneous air, or fluid fluid lines. No other obvious bony or soft tissue abnormalities about the right knee. No significant degenerative changes. No effusion. Assessment: 60-year-old male with right knee prepatellar bursitis and right leg weakness status post right foot surgery 12/07/2024. Asthma. Lumbar spondylosis. Question shoulder muscular dystrophy. BMI22. Plan: I discussed my findings, and I reviewed the imaging studies with the patient. Symptoms, exam, and imaging are most consistent with a septic right prepatellar bursitis. We discussed ongoing symptomatic management including compression particular during work and activities, icing several times at night, and the use of diclofenac gel several times per day. Since he has persistent symptoms despite these recommendations and is looking for a quick resolution, I did offer bursa aspiration and possiblecorticosteroid injection. I explained risks including persistent swelling or pain, infection, or skin color changes. Following discussion he elected proceed, see procedure note below. I explained that it will take several months for the bursitis to resolve, sometimes even 6 months or year. However if he has persistent swelling and symptoms after 3 months, then he should call or return where we may consider repeat aspiration/injection or surgical excision. We also reviewed his right leg weakness and I have printed out and reviewed several home exercises.If weakness persist then we may consider formal outpatient therapy referral. Thank you for your referral. Alejandro Rodas MD [address] [place] [address], [address] [place] [address] W: [phone] F: [phone] Portions of this note were dictated utilizing the speech recognition software. Electronically Signed By: Alejandro Rodas MD 04/11/2025 12:27 PM EDT L Inj/Asp: R patellar bursa Indications: pain and joint swelling Details: lateral approach Medications: 0.5 mL lidocaine 1 %; 20 mg triamcinolone acetonide 40 mg/mL; 5 mg dexAMETHasone (PF) 10 mg/mL Aspirate: 1 mL bloody Outcome: tolerated well, no immediate complications We discussed proceeding with a right knee prepatellar aspiration and potential injection. I explained risks of a persistent pain and swelling, infection risk at 08/999, and potential skin color changes due to corticosteroid. Following discussion risk benefits he like to proceed. He was supine on exam table. Mid lateral aspect of the bursa was marked. This was sterilized with chlorhexidine and then alcohol. Anesthetic spray was then used to anesthetize the skin and 18- gauge needle inserted into the mid aspect of the bursa. Gently moving the needle around I was able to aspirate about 1 mL of lloyd blood, no purulence or chunks. I then performed injection using a 0.5 mL 1% lidocaine plain, 0.5mL dexamethasone, and 20 mg of Kenalog. The needle was then withdrawn and found to be intact. Gentle pressure was applied for hemostasis. Compressive dressing was then applied followed by ice pack and Joey bandage. Post aspiration/injection instructions were given including rest for the few days, avoiding pressure or trauma to the area, no submerging the injection site for 3 days, he may apply anti-inflammatory gel but not to the area around the injection for 3 days, along with regular ice and compression. Informed Consent: Laterality: Right Relevant images/test results available and reviewed: yes Health status cleared: Yes Procedure/treatment, purpose, treatment alternatives, risks/potential complications and benefits explained: yes Patient questions answered: yes Patient agrees, verbalizes understanding, and wants to proceed: yes Consent given by: Patient Informed consent discussion completed by Physician/TIGIST with patient: Verbal Pre-procedure timeout performed: yes documented in this encounter Plan of Treatment Not on file documented as of this encounter Procedures Procedure Name Priority Date/Time Associated Diagnosis Comments [place] ARTHROCENTESIS/ASPI RATION/INJECTION MAJOR JOINT/BURSA W/O U/S GUIDANCE Routine 04/11/2025 11:30 AM EDT Hemorrhagic prepatellar bursitis of right knee documented in this encounter Results * XR Knee 4+ Views Right (04/11/2025 11:43 AM EDT) Anatomical Region Laterality Modality Lower Extremities, Knee Right Computed Radiography Narrative 04/12/2025 2:39 PM EDT 4 views of the right knee obtained today including AP, Goldstein, lateral, sunrise were reviewed. They show soft tissue swelling overlying tibial tubercle without any obvious foreign body, subcutaneous air, or fluid fluid lines. No other obvious bony or soft tissue abnormalities about the right knee. No significant degenerative changes. No effusion. us Alejandro Rodas MD IMG XR PROCEDURES Fin al Result * [place] ARTHROCENTESIS/ASPIRATION/INJECTION MAJOR JOINT/BURSA W/O U/S GUIDANCE (04/11/2025 11:30 AM EDT) Narrative Alejandro Rodas MD - 04/11/2025 11:30 AM EDT Alejandro Rodas MD 04/11/2025 12:43 PM L Inj/Asp: R patellar bursa Indications: pain and joint swelling Details: lateral approach Medications: 0.5 mL lidocaine 1 %; 20 mg triamcinolone acetonide 40 mg/mL; 5 mg dexAMETHasone (PF) 10 mg/mL Aspirate: 1 mL bloody Outcome: tolerated well, no immediate complications We discussed proceeding with a right knee prepatellar aspiration and potential injection. I explained risks of a persistent pain and swelling, infection risk at 08/999, and potential skin color changes due to corticosteroid. Following discussion risk benefits he like to proceed. He was supine on exam table. Mid lateral aspect of the bursa was marked. This was sterilized with chlorhexidine and then alcohol. Anesthetic spray was then used to anesthetize the skin and 18-gauge needle inserted into the mid aspect of the bursa. Gently moving the needle around I was able to aspirate about 1 mL of lloyd blood, no purulence or chunks. I then performed injection using a 0.5 mL 1% lidocaine plain, 0.5 mL dexamethasone, and 20 mg of Kenalog. The needle was then withdrawn and found to be intact. Gentle pressure was applied for hemostasis. Compressive dressing was then applied followed by ice pack and Joey bandage. Post aspiration/injection instructions were given including rest for the few days, avoiding pressure or trauma to the area, no submerging the injection site for 3 days, he may apply anti-inflammatory gel but not to the area around the injection for 3 days, along with regular ice and compression. Informed Consent: Laterality: Right Relevant images/test results available and reviewed: yes Health status cleared: Yes Procedure/treatment, purpose, treatment alternatives, risks/potential complications and benefits explained: yes Patient questions answered: yes Patient agrees, verbalizes understanding, and wants to proceed: yes Consent given by: Patient Informed consent discussion completed by Physician/TIGIST with patient: Verbal Pre-procedure timeout performed: yes us Alejandro Rodas MD IN CLINIC/BEDSIDE ORD ERABLES Final Result documented in this encounter Visit Diagnoses Diagnosis Hemorrhagic prepatellar bursitis of right knee- Primary Right knee pain Pain in joint, lower leg Right leg weakness Muscle weakness (generalized) documented in this encounter Administered Medications Inactive Administered Medications - up to 3 most recent administrations Medication Order MAR Action Action Date Dose Rate Site dexAMETHasone (PF) (DECADRON) injection 5 mg 5 mg, intra-articular, Once PRN Procedure, Starting on Lianet 04/11/25 at 1130, For 1 doseIndications:Hemorrhagic prepatellar bursitis of right knee Given 04/11/2025 11:30 AM EDT 5 mg lidocaine (XYLOCAINE) 1 % injection 0.5 mL 0.5 mL, injection, Once PRN Procedure, Starting on Lianet 04/11/25 at 1130, For 1 doseIndications:Hemorrhagic prepatellar bursitis of right knee Given 04/11/2025 11:30 AM EDT 0.5 mL triamcinolone acetonide (KENALOG-40) 40 mg/mL injection 20 mg 20 mg, intra-articular, Once PRN Procedure, Starting on Lianet 04/11/25 at 1130, For 1 doseIndications:Hemorrhagic prepatellar bursitis of right knee Given 04/11/2025 11:30 AM EDT 20 mg documented in this encounter Care Teams Lieutenant Ballistics Relationship Specialty Start Date End Date Arleen Kerr MD [address] [place] [address] PCP - General Internal Medicine 12/05/24 documented as of this encounter
--- NOTE | 2025-04-15 11:47 | MHC.OFFVIS ---
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 He is presenting with concerns regarding a congenital muscle disorder. The condition was noted to have been present since , although its manifestations can appear during childhood or adulthood. The patient has experienced muscle weakness, particularly in the shoulder region, and has observed a stronger left side compared to the right. He reports a persistent weakness in his upper body and legs, with a history of avoiding heavy lifting due to joint limitations. The disorder has influenced his ability to perform physical activities, leading to shoulder problems when engaging in exercise. 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 The patient understands that his condition may gradually worsen over time, affecting muscle functionality in his hands, arms, and shoulders. He has also discussed his [place] maternal heritage, which may have genetic implications related to muscle disorders. [facility] Medical History (Updated 04/15/25 @ 11:53 by Monika Gee MD) Spondylolisthesis, lumbar region Chronic back pain Asthma Annual physical exam Asthma Surgical History (Updated 03/12/25 @ 12:24 by Kelley Bello [facility]) [place] teeth extracted Family History Father Prostate cancer Mother No problems noted. Social History Housing: House Patient Tobacco Use Status: Never used Tobacco e-Cigarette/Vaping Use: Never Used service: No Current occupational status: employed Cognitive needs: No Hearing needs: No Vision needs: Yes Review of Systems Const Details: - Musculoskeletal: Reports muscle weakness, particularly in the shoulder area, with a stronger left side. Denies pain. 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 Assessment & Plan Assessment & Plan (1) Fascioscapulohumeral muscular dystrophy: Comment: EMG/NCS UEs at [facility] in Mar 2025: Relatively intact NCSs, myopathic features in some para cervical muscles Code(s): G71.02 - Facioscapulohumeral muscular dystrophy Category: Medical Plan During the consultation, I explained to the patient that his muscle disorder is congenital, possibly manifesting at any life stage. We discussed the significance of avoiding heavy lifting and aggressive exercises, which could exacerbate his joint issues. Emphasis was placed on the importance of maintaining joint mobility through range of motion exercises. While no medications can directly treat the disorder, lifestyle modifications are crucial in managing symptoms and slowing the progression. The patient was reassured that the condition could slowly worsen but would not significantly affect his life expectancy. Genetic considerations related to his [place] ancestry and its potential link to muscle disorders were also discussed. Coding Level of Care Code Est Pt Level 4 (04249) Diagnoses Fascioscapulohumeral muscular dystrophy G71.02
--- OUTSIDE RECORDS SUMMARY | 2025-04-15 14:22 | XMS_ITS | Encounter Summary ---
Author Organization [employer] Address [address] [facility] [address] [place] [address] Care Team Providers Care Qa Software Tester Name Role Phone Unavailable Primary Care Provider Unavailabl e Encounter Details Date Type Department Care Team (Latest Contact Info) Description 12/14/2018 Abstract [facility] CONVERSIONS Dental, Provider, DDS Social History Tobacco [...]
--- OUTSIDE RECORDS SUMMARY | 2025-04-15 14:22 | XMS_ITS | Clinical Summary ---
Author Organization [employer] Address [address] [facility] [address] [place] [address] Care Team Providers Care Control Room Operator Name Role Phone Unavailable Primary Care Provider Unavailabl e Social History Tobacco Use Types Packs/Day Years Used Date Smoking Tobacco: Never Assessed Sex and Gender Information Value Date Recorded Sex Assigned at Male 06/07/2022 10:20 AM EDT Legal Sex Male 10:20 AM EDT Gender Identity Not on file Sexual Orientation Not on file Plan of Treatment Health Maintenance Due Date Last Done Comments CT Colonography 1967 Colonoscopy 1967 Colorectal Cancer Screening 1967 Depression Screening 1967 FIT DNA/Cologuard 1967 FIT 1967 FOBT 1967 Lipid Panel 1967 Sigmoidoscopy 1967 Disability Screening 1967 Alcohol/Substance Use Screening 1979 Tobacco Screening 1979 DTaP/Tdap/Td Vaccines (1 - Tdap) 1986 Hepatitis B Vaccines (1 of 3 - 19+ 3-dose series) 1986 Pneumococcal Vaccine: 50+ Ye ars (1 of 1 - PCV) 2017 Zoster Vaccines (1 of 2) 2017 COVID-19 Vaccine ( - 2023-2 5 season) 2025 Influenza Vaccine (#1) 2025 RSV Patients and Pa tients Aged 60 years or older (1 - 1-dose 75+ series) 2042 HIB Vaccines Aged Out No longer eligi [...] patient's age to complete this topic Meningococcal Vaccine Aged Out No [facility] eligible based on patient's age to complete this topic RSV under 20 months Aged Out No longe r eligible based on patient's age to complete this topic Rotavirus Vaccines Aged Out No longer eligible based on patient's age to complete this topic
--- OUTSIDE RECORDS SUMMARY | 2025-04-15 14:23 | XMS_ITS | Clinical Summary ---
Author Organization [facility] Address [address] [place] [address] Phone Care Team Providers Care Court Operations Clerk Name Role Phone Arleen Kerr MD Primary Care Provider [phone] Allergies Active Allergy Reactions Criticality Noted Date Comments Chocolate 09/16/2017 Other Reaction(s): Rash/Dermatitis Patient eats cocoa with no reaction. He thinks it happens if eats frequently [place] And Derivatives 05/18/2017 Egg 11/15/2016 Other Reaction(s): Rash/Dermatitis Patient eats eggs occasionally with no reaction. He thinks it happens if eats frequently Tomato 11/15/2016 Other Reaction(s): Rash/Dermatitis thinks it happens if eats Frequently but eats pizza with no reaction Medications diclofenac (VOLTAREN) 1 % topical gel if needed. 4 Active loratadine (CLARITIN) 10 mg tablet Take 1 tablet (10 mg total) by mouth 1 (one) time each day. 8 Active inhalational spacing device inhaler 8 Active montelukast (SINGULAIR) 10 mg tablet Take 1 tablet (10 mg total) by mouth 1 (one) time each day. Active diclofenac (Voltaren Arthritis Pain) 1 % topical gel Apply 4 g topically 2 (two) times a day. 240 g 1 5 06/02/20 25 Active meloxicam (MOBIC) 15 mg tablet Take 1 tablet (15 mg total) by mouth 1 (one) time each day. 30 tablet 5 04/13/20 25 Hospital, Clinic, or Other Facility Administered Medication Ordered Dose Route Frequency Start Date End Date Status lidocaine (XYLOCAINE) 1 % injection 0.5 mLIndications:Hemorr hagic prepatellar bursitis of right knee .5 mL inj Once PRN Procedure 04/11/2025 04/11/2025 Ended triamcinolone acetonide (KENALOG-40) 40 mg/mL injection 20 mgIndications:Hemorr hagic prepatellar bursitis of right knee 20 mg IAtc Once PRN Procedure 04/11/2025 04/11/2025 Ended dexAMETHasone (PF) (DECADRON) injection 5 mgIndications:Hemorr hagic prepatellar bursitis of right knee 5 mg IAtc Once PRN Procedure 04/11/2025 04/11/2025 Ended Active Problems Problem Noted Date Diagnosed Date [...] The MRI of the cervical spine from [place] dated September 13, 2024 revealed multilevel mild [...] Encounters Date Type Department Care Team Description 04/11/2025 11:30 AM EDT Consult Orthopedic [place] [address] [phone] Alejandro Rodas MD Hemorrhagic prepatellar bursitis of right knee (Primary Dx); Right knee pain; Right leg weakness 04/03/2025 2:30 PM EDT Office Visit Orthopedic [place] [address] [phone] Santos Morales DPM Right foot pain (Primary Dx); Arthritis of both feet; Infrapatellar bursitis of right knee 04/02/2025 Telephone Orthopedic Surgery [place] [address] [phone] Santos Morales DPM 03/21/2025 Telephone Orthopedic [place] [address] [phone] Santos Morales DPM 03/14/2025 9:45 AM EDT Office Visit Orthopedic [place] [address] [phone] Santos Morales DPM Right foot pain (Primary Dx); Swelling of right foot 03/11/2025 3:30 PM EDT Treatment Outpatient Rehabilitation - [address] [phone] Jax Tena, PT Difficulty walking (Primary Dx); Post-operative state 03/08/2025 10:30 AM EDT Treatment Outpatient Rehabilitation - [address] [phone] Jax Tena, PT Difficulty walking (Primary Dx); Post-operative state 03/05/2025 11:30 AM EDT Treatment Outpatient [address] [phone] Weidler, Kavitha, HEALTH INFORMATION PROVIDER Difficulty walking (Primary Dx); Post-operative state 03/01/2025 2:00 PM EDT Treatment Outpatient [address] [phone] Weidler, Kavitha, HEALTH INFORMATION PROVIDER Difficulty walking (Primary Dx) 02/28/2025 9:30 AM EDT Office Visit Orthopedic Surgery [address] [phone] Santos Morales DPM Post-operative state (Primary Dx) 02/25/2025 11:00 AM EDT Treatment Outpatient [address] [phone] Weidler, Kavitha, HEALTH INFORMATION PROVIDER Difficulty walking (Primary Dx); Post-operative state 02/21/2025 11:00 AM EDT Treatment Outpatient [address] [phone] Weidler, Kavitha, HEALTH INFORMATION PROVIDER Difficulty walking (Primary Dx); Post-operative state 02/18/2025 11:00 AM EDT Treatment Outpatient [address] [phone] Weidler, Kavitha, HEALTH INFORMATION PROVIDER Difficulty walking (Primary Dx); Post-operative state 02/15/2025 11:30 AM EDT Treatment Outpatient [address] [phone] Weidler, Kavitha, HEALTH INFORMATION PROVIDER Difficulty walking (Primary Dx); Post-operative state 02/12/2025 2:30 PM EDT Evaluation Outpatient [address] [phone] Jax Tena, SELVIN Difficulty walking (Primary Dx); Post-operative state 02/12/2025 [facility] Outpatient Rehabilitation [address] [phone] 02/07/2025 9:45 AM EDT Office Visit Orthopedic Surgery [facility] [address] [phone] Santos Morales DPM Post-operative state (Primary Dx) 01/17/2025 10:15 AM EDT Office Visit Orthopedic Surgery - [place] [address] [address] Santos Morales DPM Post-operative state (Primary Dx) from Last [...] EDT Inhaled Oxygen Concentration - - Weight 72.1 kg (159 lb) 04/11/2025 11:44 AM EDT Height 182.9 cm (6') 04/11/2025 11:44 AM EDT Body Mass Index 21.56 04/11/2025 11:44 AM EDT Plan of Treatment Health Maintenance Due Date [...] this topic Medical Devices Implanted Type Area Supervisor Pleating Device Identifier Shelf Expiration Date Model / Serial / Lot Plate Lapidus 3h Rght No Arm - Sn/A - [id number] Implanted:Qty: 1 on 12/07/2024 by Santos Morales DPM at [facility] Internal and External Fixation Right: Foot [employer] [id number] / N/A / N/A Screw Lcking Plate 3.5x24mm R3con - Sn/A - [id number] Implanted:Qty: 1 on 12/07/2024 by Santos Morales DPM at [facility] Internal and External Fixation Right: Foot [employer] [id number] / N/A / N/A Screw Lcking Plate 3.5x22mm R3con - Sn/A - [id number] Implanted:Qty: 1 on 12/07/2024 by Santos Morales DPM at [facility] Internal and External Fixation Right: Foot [employer] [id number] / N/A / N/A Screw R3con Non Lcking Plate 3.5x24mm - Sn/A - [id number] Implanted:Qty: 1 on 12/07/2024 by Santos Morales DPM at [facility] Internal and External Fixation Right: Foot [employer] [id number] 524 / N/A / N/A Screw Bone Recon 3.5x20mm [facility]/A - [id number] Implanted:Qty: 1 on 12/07/2024 by Santos Morales DPM at [facility] Internal and External Fixation Right: Foot [employer] [id number] 520 / N/A / N/A [employer]ol Staple System; Straight Staple Kit Implanted:Qty: 1 on 12/07/2024 by Santos Morales DPM at [facility] Right: Foot [employer] 08/07/2029 [id number] / N/A / [id number] Procedures Procedure Name Priority Date/Time Associated Diagnosis Comments XR KNEE 4+ VIEWS RIGHT Routine 04/11/2025 11:43 AM EDT Right knee pain Hemorrhagic prepatellar bursitis of right knee HI ARTHROCENTESIS/ASPIR ATION/INJECTION MAJOR JOINT/BURSA W/O U/S GUIDANCE Routine 04/11/2025 11:30 AM EDT Hemorrhagic prepatellar bursitis of right knee XR FOOT 3+ VIEWS RIGHT Routine 01/17/2025 10:27 AM EDT Post-operative state LIPID PANEL Routine 05/27/2018 HM COLONOSCOPY Routine 05/23/2018 from Last 3 Months or Most Recently Relevant to Health Maintenance Results * XR Knee 4+ Views Right [...] IMG XR PROCEDURES Fin al Result * HI ARTHROCENTESIS/ASPIRATION/INJECTION MAJOR JOINT/BURSA W/O U/S GUIDANCE (04/11/2025 [...] with patient: Verbal Pre-procedure timeout performed: yes Alejandro Rodas MD IN CLINIC/BEDSIDE ORD ERABLES Final Result * XR Foot 3+ Views Right (01/17/2025 10:27 AM EDT) Anatomical Region Laterality Modality Lower Extremities, Foot [...] ORDERABLES Ly l Result * Colonoscopy (05/23/2018) Pathologist [facility] Colonoscopy no interpreta tion,abstr acted Anatomical Region Laterality Modality Other Historical Provider HEALTH MAINTENANCE Final Result from Last 3 Months or Most Recently Relevant to Health Maintenance Insurance [facility] Advance Directives * Full Code - Default [...] currently active code status orders. Care Teams Court Operations Clerk Relationship Specialty Start Date End Date Arleen Kerr MD [address] [place] [address] PCP - General Internal Medicine 12/05/24
--- OUTSIDE RECORDS SUMMARY | 2025-04-15 14:23 | XMS_ITS | Clinical Summary ---
Author Organization [facility] Address [address] [place] [address] Care Team Providers Care Instrument Lens Grinder Name Role Phone Unavailable Primary Care Provider Unavailabl e Social History Tobacco Use Types Packs/Day Years Used Date Smoking Tobacco: Never Assessed Sex and Gender Information Value Date Recorded Sex Assigned at Not on file Gender Identity Not on file Sexual Orientation Not on file Plan of Treatment Not on file
== END 2025-04-15 11:58 | disposition home or self-care (01) ==
LOC: HO.HSM 11:45
PROVIDERS: PCP Internal Medicine; Visit Provider Psychiatry & Neurology Neurology
DX: G71.02 Facioscapulohumeral muscular dystrophy (principal)
CPT/HCPCS: 99214

== ENCOUNTER 2025-06-06 12:57 | Outpatient (AMB) | payer OTHER, SELFPAY ==
[2025-06-06 13:13] VITALS: BP 104/60; PULSE 74; RESP 16; TEMP 36.8; O2SAT 98; BMI 22.5
--- NOTE | 2025-06-06 13:13 | A.OFFPC_ITS ---
Vital Signs 06/06/25 13:13 Height 6 ft Weight 166 lb BMI 22.5 BP 104/60 Blood Pressure Location Lt brachial Position Sitting Respiration 16 Pulse 74 Pulse Source Pulse Oximeter Temp 98.2 F Temp Source Oral Pulse Oximetry (%) 98 Oxygen Delivery Method Room Air Intake Visit Reasons: Annual Exam Intake Note: Pt is here today for his PE Allergies tomato Allergy (Mild, Verified 06/06/25 13:13) Rash egg (EGGS) Allergy (Unknown, Verified 06/06/25 13:13) RASH orange (ORANGES) Allergy (Unknown, Verified 06/06/25 13:13) RASH CHOCOLATE Allergy (Unknown, Uncoded 06/06/25 13:13) RASH Medication List - Last Reconciled 06/06/25 by Arleen Kerr MD loratadine (Claritin) 10 mg PO DAILY montelukast 10 mg PO DAILY Tobacco use date assessed: 06/06/25 Dental Screening Dental Screen Date: 06/06/25 Did you have a dental visit in the last 12 months?: Yes Did you have a dental problem in the last 6 months where you did not have access to dental care?: No Was dental information given to patient?: Patient has dentist HPI Annual Exam HPI Details Pt presents for PE. He has been seeing orthopedist and neurologist for persistent right shoulder pain and weakness. Patient was diagnosed with fascioscapulohumeral muscular dystrophy and referred to occupational therapy. [facility] Medical History (Updated 06/06/25 @ 15:37 by Arleen Kerr MD) Fascioscapulohumeral muscular dystrophy BPH (benign prostatic hyperplasia) Colon cancer screening Spondylolisthesis, lumbar region Chronic back pain Asthma Annual physical exam Asthma Surgical History (Updated 03/12/25 @ 12:24 by Kelley Bello CMA) [place] teeth extracted Family History Father Prostate cancer Mother No problems noted. Social History Housing: House Patient Tobacco Use Status: Never used Tobacco e-Cigarette/Vaping Use: Never Used service: No Current occupational status: employed Cognitive needs: No Hearing needs: No Vision needs: Yes Questionnaire PHQ-9 Over the last 2 weeks, how often have you been bothered by any of the following problems? 1. Little interest or pleasure in doing things: not at all 2. Feeling down, depressed, or hopeless: not at all 3. Trouble falling or staying asleep, or sleeping too much: not at all 4. Feeling tired or having little energy: not at all 5. Poor appetite or overeating: not at all 6. Feeling bad about yourself - or that you are a failure or have let yourself or your family down: not at all 7. Trouble concentrating on things, such as reading the newspaper or watching television: not at all 8. Moving or speaking so slowly that other people could have noticed. Or the o pposite - being so fidgety or restless that you have been moving around a lot more than usual: not at all 9. Thoughts that you would be better off or of hurting yourself in some way: not at all Total score: 0 Depression Screening Interpretation: Negative Depression Screening Done: Yes 89303 - PHQ-9 Billing: Yes Source: Developed by Drs. Stanislaw Prieto, Fela Helm, Román Pan and colleagues, with an educational elliot from [employer]. Thrive Questionnaire Date Thrive assessed: 06/06/25 I am a: Patient What is your living situation today?: I have a steady place to live Within the past 12 months, did the food you bought not last and you didn't have the money to get more?: I choose not to answer this question Within the past 12 months, did you worry whether your food would run out before you got money to buy more?: I choose not to answer this question Do you have trouble paying for medicines?: I choose not to answer this question Do you have trouble getting transportation to medical appointments?: I choose not to answer this question Do you have trouble paying your heating and electricity bill?: I choose not to answer this question Do you have trouble taking care of your child, family member or friend?: I choose not to answer this question Do you have trouble with day-to-day activities such as bathing, preparing meals, shopping, managing finances, etc.?: I choose not to answer this question Are you interested in more education?: I choose not to answer this question Please select the resources that you would like help with: None Currently or been in a relationship where the following occur: I choose not to answer THRIVE Score: 0 AUDIT C Alcohol Use Questionnaire (AUDIT-C) 1. How often do you have a drink containing alcohol?: Never 3. How often do you have six or more drinks on one occasion?: Never Total Score: 0 Score Reviewed/Action Taken: Yes SEUN-7 AMB Questionnaire SEUN-7 Date SEUN - 7 assessed: 06/06/25 Feeling nervous, anxious, or on edge: 0 = Not at all Not being able to stop or control worryin = Not at all Worrying too much about different things: 0 = Not at all Trouble relaxin = Not at all Being so restless that it is hard to sit still: 0 = Not at all Becoming easily annoyed or irritable: 0 = Not at all Feeling afraid as if something awful might happen: 0 = Not at all Total SEUN-7 score (0-4 normal; 5-9 mild; 10-14 moderate; 15-21 severe): 0 Source: Developed by Drs. Stanislaw Prieto, Fela Helm, Román Pan and colleagues, with an educational elliot from [employer]. SEUN-7 Assessment Billing SEUN-7 Assessment Tool: SEUN-7 Assessment 43542 Review of Systems Const All systems reviewed & are unremarkable except as noted in HPI and below Eyes Reports no additional complaints ENT Reports no additional complaints Card Reports no additional complaints Resp Reports no additional complaints GI Reports no additional complaints Reports no additional complaints Physical exam (Primary Care) Vital Signs: Last Vital Signs Temp 98.2 F 06/06/25 13:13 Pulse 74 06/06/25 13:13 Resp 16 06/06/25 13:13 BP 104/60 06/06/25 13:13 Pulse Ox 98 06/06/25 13:13 Oxygen Delivery Method Room Air 06/06/25 13:13 BMI result Body Mass Index 22.5 Tobacco/Smoking Status: Tobacco use Status Tobacco use date assessed 06/06/25 06/06/25 13:19 Patient Tobacco Use Status Never used Tobacco 06/06/25 13:19 e-Cigarette/Vaping Use Never Used 06/06/25 13:19 PHQ-9: PHQ-9 Score PHQ-9: Total score 0 06/06/25 13:19 Depression Screening Interpretation: Negative Thrive Assessment: Date of Thrive Assessment Date Thrive assessed 06/06/25 06/06/25 13:19 Currently or been in a relationship where the following occur: I choose not to answer Const General: no acute distress HENMT Head: Yes normal to inspection Throat: Yes posterior oropharynx normal Eyes General: appearance normal, both eyes and all related structures Neck Neck: Yes supple Resp Effort & Inspection: normal respiratory effort Auscultation: clear to auscultation bilaterally Cardio Rhythm: regular rhythm Heart sounds: S1 normal heart sound present and S2 normal heart sound present GI Inspection: Yes normal to inspection Palpation (GI): Soft to palpation Percussion: Yes normal to percussion Auscultation: normal bowel sounds Back/Spine/Pelvis Other: Significant atrophy of supraspinatus and infraspinatus muscles on the right side. Some atrophy of right major pectoralis Coding Level of Care Code Est Pt Prev Care 40-64y(75557) Diagnoses Annual physical exam Z. Fascioscapulohumeral muscular dystrophy G71.02 Asthma J45.909 Additional Codes SEUN-7 Assessment Billing - SEUN-7 Assessment Tool: SEUN-7 Assessment 01021 ([id number]) PHQ-9 - 60931 - PHQ-9 Billing: Yes ([id number]) Assessment & Plan Assessment & Plan (1) Annual physical exam: Code(s): Z. - Encounter for general adult medical examination without abnormal fi ndings Category: Medical Plan: Well-balanced diet regular physical activity discussed with the patient. He will be referred to GI for colonoscopy patient will return for fasting blood work (2) Fascioscapulohumeral muscular dystrophy: Comment: EMG/NCS UEs at [facility] in Mar 2025: Relatively intact NCSs, myopathic features in some para cervical muscles, established with Dr. Gee Code(s): G71.02 - Facioscapulohumeral muscular dystrophy Category: Medical Plan: Follow-up with neurology, referred for occupational therapy (3) Asthma: Comment: mild, controlled on Singuair Code(s): J45.909 - Unspecified asthma, uncomplicated Category: Medical Plan: Continue Singulair Orders: Orders UA w Microscopic Today Z00. - Encounter for general adult medical examination without abnormal findings Referrals Gastroenterology Referral Z00.00 - Encounter for general adult medical examination without abnormal findings
--- OUTSIDE RECORDS SUMMARY | 2025-06-06 15:49 | XMS_ITS | Clinical Summary ---
Author Organization [employer] Address [address] [facility] [address] [place] [address] Care Team Providers Care Fruit Washer Name Role Phone Unavailable Primary Care Provider [...]
--- OUTSIDE RECORDS SUMMARY | 2025-06-06 15:49 | XMS_ITS | Encounter Summary ---
Author Organization [employer] Address [address] [facility] [address] [place] [address] Care Team Providers Care Head Silverman Name Role Phone Unavailable Primary Care Provider Unavailabl e Encounter Details Date Type Department Care Team (Latest Contact Info) Description 12/14/2018 Abstract [facility] CONVERSIONS Dental, Provider, DDS Social History [...]
--- OUTSIDE RECORDS SUMMARY | 2025-06-06 15:49 | XMS_ITS | Clinical Summary ---
Author Organization [facility] Address [address] [place] [address] Care Team Providers Care Home Manager Name Role Phone Unavailable Primary Care Provider Unavailabl e Social History Tobacco Use Types Packs/Day Years Used Date Smoking Tobacco: Never Assessed Sex and Gender Information Value Date Recorded Sex Assigned at Not on file Gender Identity Not on file Sexual Orientation Not on file Plan of Treatment Not on file
== END 2025-06-06 15:40 | disposition home or self-care (01) ==
LOC: HO.HMCC 12:57
PROVIDERS: PCP Internal Medicine; Visit Provider Internal Medicine
DX: Z00.00 Encounter for general adult medical examination without abnormal findings (principal); G71.02 Facioscapulohumeral muscular dystrophy; J45.909 Unspecified asthma, uncomplicated

== ENCOUNTER → 2025-06-06 12:57 | Outpatient (BNVA) | payer OTHER, SELFPAY | PROVIDERS: PCP Internal Medicine; Visit Provider Internal Medicine | DX: Z00.00 Encounter for general adult medical examination without abnormal findings (principal); M25.511 Pain in right shoulder; J45.909 Unspecified asthma, uncomplicated; G71.02 Facioscapulohumeral muscular dystrophy | CPT/HCPCS: 96127 ==

== ENCOUNTER 2025-06-10 12:59 | Outpatient (RCR) | payer OTHER, SELFPAY ==
--- NOTE | 2025-05-29 14:52 | MHC.OT.EP ---
[facility] Office [address] [phone] F: [phone] F: [phone] Occupational Therapy Plan of Care Patient Name: Garfield Rosario Date of Evaluation: 05/29/25 Diagnosis: Fascioscapulohumeral muscular dystrophy Pain Location: NONE AT REST 4-5/10 WITH FREQUENT, REPETITIVE USE Pain Score: 0-5/10 Pain Scale Used: Numeric (0 - 10) Aggravating Factors: REPETITIVE USE/ IADLS / YARD WORK Alleviating Factors: ADVIL PRN Assessment: MR ROSARIO P/W FSHD. HE REPORTS MANY YEARS OF WEAKNESS THROUGH HIS RUE AND HAS IMPLEMENTED SOME ADAPTIVE TECHNIQUES FOR HIS ADLs/IADLs. 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 SOME FATIGUE AND MODERATE PAIN IS REPORTED AFTER HEAVY LIFTING TASKS. HIS GROSS GRASP IS 45 POUNDS ON THE RIGHT AND 68 ON THE LEFT. HIS ROM AND COORDINATION ARE FUNCTIONAL AT THIS TIME. A 7% LIMITATION IS REPORTED PER THE QUICK DASH ASSESSMENT. A BRIEF COURSE OF OT IS WARRANTED TO PROVIDE Pt WITH ED ON ACTIVITY MODIFICATIONS, PAIN MANAGEMENT AND STRENGTHENING OF HIS RUE TOLERATED. Frequency and Duration: The patient will be seen 1X/WEEK FOR 3 WEEKS Short Term Goals: IND PROGRESSION OF HEP IND LIFESTYLE / ACTIVITY MODIFICATIONS EXPLORE AE/AT FOR IADLs TO REDUCE PAIN AND FATIGUE R GROSS GRASP TO >50 POUNDS Accounting Systems Analyst Goals: Treatment Plan: Therapeutic Exercise Therapeutic Activity Home Exercise Program Neuro Re-ed Patient Education Desensitization/Sensory Re-ed Edema Control ADL Training Ultrasound NMES Paraffin Fluidotherapy MHP Cold Packs Joint Mobilization Soft Tissue Mobilization Kinesiotaping Other (see comments) Electronically Signed By: WENDY HALLMAN OTR/L Please Sign and return to therapist. Thank you once again for your referral.
--- NOTE | 2025-06-10 13:32 | MHC.OT.DC ---
[facility] Office [address] [phone] F: [phone] F: [phone] Occupational Therapy Discharge Note Patient Name: Garfield Rosario Provider: Monika Gee Diagnosis: Fascioscapulohumeral muscular dystrophy Date of Evaluation: 05/29/25 Date of Discharge: 06/10/25 Treatments to Date: 4 Cancellations to Date: 0 No Shows to Date: 0 Discharge Status: Achieved Goals Independent with HEP Discharge Summary: MR ROSARIO DEMO GOOD FOLLOW THROUGH WITH HEP. HE IS TOLERATING RED THERABAND WELL WITH CUED REST BREAKS. USING UBE AT HOME. READY TO PROGRESS TO A HOME BASED PROGRAM AT THIS TIME. D/C OT. Electronically Signed By: WENDY HALLMAN OTR/Mami Reviewed/agree with student documentation: N/A Therapist: Please Sign and return to therapist, thank you for your referral.
== END 2025-06-19 11:30 | disposition home or self-care (01) ==
LOC: HO.OT 12:59
PROVIDERS: PCP Internal Medicine; Visit Provider Psychiatry & Neurology Neurology
DX: G71.02 Facioscapulohumeral muscular dystrophy (principal)
CPT/HCPCS: 97110; 97166

== ENCOUNTER 2025-06-24 07:38 | Outpatient (REF) | payer OTHER, SELFPAY ==
--- OUTSIDE RECORDS SUMMARY | 2025-06-24 07:57 | XMS_ITS | Clinical Summary ---
Author Organization [facility] Address [address] [place] [address] Care Team Providers Care Boatswain Mate Name Role Phone Unavailable Primary Care Provider Unavailabl e Social History Tobacco Use Types Packs/Day Years Used Date Smoking Tobacco: Never Assessed Sex and Gender Information Value Date Recorded Sex Assigned at Not on file Gender Identity Not on file Sexual Orientation Not on file Plan of Treatment Not on file
--- OUTSIDE RECORDS SUMMARY | 2025-06-24 07:57 | XMS_ITS | Clinical Summary ---
Author Organization [employer] Address [address] [facility] [address] [place] [address] Care Team Providers Care Algebra Teacher Name Role Phone Unavailable Primary Care Provider [...] of 2) 2017 COVID-19 Vaccine ( - 2024-2 6 season) 2025 Influenza Vaccine (#1) 2025 RSV [...]
--- OUTSIDE RECORDS SUMMARY | 2025-06-24 07:57 | XMS_ITS | Clinical Summary ---
Author Organization 175 [facility] Address [address] [place] [address] Phone Care Team Providers Care Parts Counterman Name Role Phone Arleen Kerr MD Primary Care Provider [phone] Allergies Active Allergy Reactions Criticality Noted Date Comments Chocolate 09/16/2017 Other Reaction(s): Rash/Dermatitis Patient eats cocoa with no reaction. He thinks it happens if eats frequently [place] And Derivatives 05/18/2017 Egg 11/15/2016 Other Reaction(s): [...] 240 g 1 5 06/02/20 25 Active Problems Problem Noted Date Diagnosed Date [...] The MRI of the cervical spine from [place] dated September 13, 2024 revealed multilevel mild [...] 04/11/2025 11:30 AM EDT Consult Orthopedic Surgery [place] [address] [address] Alejandro Rodas MD Hemorrhagic prepatellar bursitis of right knee (Primary Dx); Right knee pain; Right leg weakness 04/03/2025 2:30 PM EDT Office Visit Orthopedic Surgery [facility] [address] [place] [address] Santos Morales DPM Right foot pain (Primary Dx); Arthritis of both feet; Infrapatellar bursitis of right knee 04/02/2025 Telephone Orthopedic Surgery - [place] [address] [address] Santos Morales DPM from Last 3 Months Immunizations Immunization Administration Dates Next Due Influenza Quadravalent, 0.5ml [...] Safety Answer Date Record ed Physical Abuse Unrecognized value 12/07/2024 Verbal Abuse Unrecognized value 12/07/2024 Sex and Gender Information Value Date [...] of 3 - 19+ 3-dose series) 1986 RSV Immunization Adult Patients (1 - Risk 50-74 years 1-dose series) 2017 Pneumococcal Vaccine: 50+ Years (2 of 2 - PCV) 05/06/2018 05/06/2017 Cholesterol Screening (Lipid Panel) 09/07/2023 05/27/2018 HIV Screening 09/07/2023 Hepatitis C Screening 09/07/2023 Social Influencers of Health Screening 09/07/2023 Depression Screening 08/08/2024 COVID-19 Vaccine ( season) 2025 05/09/2024, 06/08/2023, 05/21/2022, Additional history exists Influenza Vaccine (#1) 2025 , 05/20/2023, 05/12/2022, Additional history exists Colorectal Cancer Screening: Colonoscopy 05/23/2028 05/23/2018 Zoster Vaccines Completed 09/15/2023, 07/07/2023 HIB Vaccines Aged Out No longer eligi [...] this topic Medical Devices Implanted Type Area Stoker Mechanic Device Identifier Shelf Expiration Date Model / Serial / Lot Plate Lapidus 3h Rght No Arm - Sn/A - [id number] Implanted:Qty: 1 on 12/07/2024 by Santos Morales DPM at [facility] Internal and External Fixation Right: Foot [employer] [id number] 101 / N/A / N/A Screw Lcking Plate 3.5x24mm R3con - Sn/A - [id number] Implanted:Qty: 1 on 12/07/2024 by Santos Morales DPM at [facility] Internal and External Fixation Right: Foot [employer] [id number] 524 / N/A / N/A Screw Lcking Plate 3.5x22mm R3con - Sn/A - [id number] Implanted:Qty: 1 on 12/07/2024 by Santos Morales DPM at [facility] Internal and External Fixation Right: Foot [employer] [id number] 522 / N/A / N/A Screw R3con Non Lcking Plate 3.5x24mm - Sn/A - [id number] Implanted:Qty: 1 on 12/07/2024 by Santos Morales DPM at [facility] Internal and External Fixation Right: Foot [employer] [id number] 524 / N/A / N/A Screw Bone Recon 3.5x20mm Lcking - Sn/A - [id number] Implanted:Qty: 1 on 12/07/2024 by Santos Morales DPM at [facility] Internal and External Fixation Right: Foot [employer] [id number] 520 / N/A / N/A [employer] Nitinol Staple System; Straight Staple Kit Implanted:Qty: 1 on 12/07/2024 by Santos Morales DPM at [facility] Right: Foot [employer] 08/07/2029 [id number] 818-S / N/A / [id number] Procedures Procedure Name Priority Date/Time Associated Diagnosis Comments XR KNEE 4+ VIEWS RIGHT Routine 04/11/2025 11:43 AM EDT Right knee pain Hemorrhagic prepatellar bursitis of right knee MI ARTHROCENTESIS/ASPIR ATION/INJECTION MAJOR JOINT/BURSA W/O U/S GUIDANCE Routine 04/11/2025 11:30 AM EDT Hemorrhagic prepatellar bursitis of right knee LIPID PANEL Routine 05/27/2018 HM COLONOSCOPY Routine [...] IMG XR PROCEDURES Fin al Result * MI ARTHROCENTESIS/ASPIRATION/INJECTION MAJOR JOINT/BURSA W/O U/S GUIDANCE (04/11/2025 11:30 AM EDT) Alejandro Max MD - 04/11/2025 11:30 AM EDT Alejandro [...] IN CLINIC/BEDSIDE ORD ERABLES Final Result * Lipid panel (05/27/2018) LDL/HDL Ratio 2 [...] Most Recently Relevant to Health Maintenance Insurance [facility] Advance Directives * Full Code - Default [...] currently active code status orders. Care Teams Parts Counterman Relationship Specialty Start Date End Date Arleen Kerr MD [address] [place] [address] PCP - General Internal Medicine 12/05/24
--- OUTSIDE RECORDS SUMMARY | 2025-06-24 07:57 | XMS_ITS | Encounter Summary ---
Author Organization [employer] Address [address] [facility] 7t [place] [address] Care Team Providers Care Section Plotter Operator Name Role Phone Unavailable Primary Care Provider Unavailabl e Encounter Details Date Type Department Care Team (Latest Contact Info) Description 12/14/2018 Abstract [facility] CONVERSIONS Dental, Provider, DDS Social History [...]
[2025-06-24 10:29] LABS: MANUAL DIFF FLAG NO
[2025-06-24 10:30] LABS: Appearance Urine Clear; Glucose Urine UA Negative (Negative); PH 7.0 (5.0-9.0); Specific Gravity - Urine 1.020 (1.005-1.025)
[2025-06-24 10:33] LABS: Hematocrit 43.3 % (42.0-52.0); Hemoglobin 14.4 g/dl (14.0-18.0); Imm Gran Abs Auto 0.01 X10*3/uL (0.00-0.03); Imm Gran Pct Auto 0.3 % (0.0-0.4); Lymphocytes Absolute Auto 1.0 X10*3/uL (1.2-4.9); Mean Corpuscular HGB Conc 33.3 g/dl (31.0-36.0); Mean Corpuscular Hemoglobin 30.4 pg (27.0-33.0); Mean Corpuscular Volume 91.4 fL (80.0-98.0); NRBC Abs Auto 0.000 X10*3/uL (0.0-0.012); NRBC Pct Auto 0.0 /100WBC (0.0-0.2); Platelet Count 238 X10*3/uL (160-400); Red Blood Count 4.74 X10*6/uL (4.60-5.80); White Blood Count 3.2 X10*3/uL (4.8-10.8)
[2025-06-24 10:55] LABS: Alanine Aminotransferase 24 U/L (0-40); Albumin Level 4.1 g/dL (3.5-5.0); Alkaline Phosphatase 76 U/L (39-117); Anion Gap 11 (12-20); Aspartate Amino Transferase 30 U/L (5-37); Blood Urea Nitrogen 18 mg/dL (9-16); Calcium 9.4 mg/dL (8.4-10.2); Carbon Dioxide 29 mmol/L (22-29); Chloride 106 mmol/L (96-108); Cholesterol 159 mg/dL (<200); Estimated Glomerular Filt Rate > 60; HDL Cholesterol 67 mg/dL (>40); Potassium 4.0 mmol/L (3.3-5.1); Sodium 142 mmol/L (135-145); Total Protein 6.6 g/dL (6.5-8.0); Triglycerides 52 mg/dL (<150)
[2025-06-24 11:05] LABS: PSA,Total (Free>4and<10) 0.87 ng/mL (0.00-4.00)
== END 2025-06-24 07:39 | disposition home or self-care (01) ==
LOC: HO.HMGCLDS 07:38
PROVIDERS: PCP Internal Medicine; Visit Provider Internal Medicine
DX: Z00.00 Encounter for general adult medical examination without abnormal findings (principal); N40.0 Benign prostatic hyperplasia without lower urinary tract symptoms; Z12.5 Encounter for screening for malignant neoplasm of prostate; Z13.0 Encounter for screening for diseases of the blood and blood-forming organs and certain disorders involving the immune mechanism; Z13.6 Encounter for screening for cardiovascular disorders
CPT/HCPCS: 36415; 80053; 80061; 81001; 84153; 85025

== ENCOUNTER 2025-07-03 10:16 | Outpatient (REF) | payer OTHER, SELFPAY ==
--- OUTSIDE RECORDS SUMMARY | 2025-07-03 12:05 | XMS_ITS | Clinical Summary ---
Author Organization 175 [facility] Address [address] [place] [address] Phone Care Team Providers Care Mine Inspector Name Role Phone Arleen Kerr MD Primary Care Provider [phone] Allergies Active Allergy Reactions Criticality Noted Date Comments Chocolate 09/16/2017 Other Reaction(s): Rash/Dermatitis Patient eats cocoa with no reaction. He thinks it happens if eats frequently [place] And Derivatives 05/18/2017 Egg 11/15/2016 Other Reaction(s): [...] mouth 1 (one) time each day. Active Active Problems Problem Noted Date Diagnosed [...] The MRI of the cervical spine from [place] dated September 13, 2024 revealed multilevel mild [...] 04/11/2025 11:30 AM EDT Consult Orthopedic Surgery [facility] [address] [address] Alejandro Rodas MD Hemorrhagic prepatellar bursitis of right knee (Primary Dx); Right knee pain; Right leg weakness 04/03/2025 2:30 PM EDT Office Visit Orthopedic Surgery [facility] [address] [address] Santos Morales DPM Right foot pain (Primary Dx); Arthritis of both feet; Infrapatellar bursitis of right knee 04/02/2025 Telephone Orthopedic Surgery - [place] [address] [place] [address] Santos Morales DPM from Last 3 [...] this topic Medical Devices Implanted Type Area Family Services Specialist Device Identifier Shelf Expiration Date Model / Serial / Lot Plate Lapidus 3h Rght No Arm - Sn/A - [id number] Implanted:Qty: 1 on 12/07/2024 by Santos Morales DPM at [facility] Internal and External Fixation Right: Foot [employer] [id number] 101 / N/A / N/A Screw Lcking Plate 3.5x24mm R3con - Sn/A - [id number] Implanted:Qty: 1 on 12/07/2024 by Santos Morales DPM at [facility] Internal and External Fixation Right: Foot [employer] [id number] 524 / N/A / N/A Screw Lcking Plate 3.5x22mm R3con - Sn/A - [id number] Implanted:Qty: 1 on 12/07/2024 by Santos Morales DPM at [facility] Internal and External Fixation Right: Foot [employer] [id number] 522 / N/A / N/A Screw R3con Non Lcking Plate 3.5x24mm - Sn/A - [id number] Implanted:Qty: 1 on 12/07/2024 by Santos Morales DPM at [facility] Internal and External Fixation Right: Foot [employer] [id number] 524 / N/A / N/A Screw Bone Recon 3.5x20mm Lcking - Sn/A - [id number] Implanted:Qty: 1 on 12/07/2024 by Santos Morales DPM at [facility] Internal and External Fixation Right: Foot [employer] [id number] 520 / N/A / N/A [employer] Nitinol Staple System; Straight Staple Kit Implanted:Qty: 1 on 12/07/2024 by Santos Morales DPM at [facility] Right: Foot [employer] 08/07/2029 [id number] 818-S / N/A / [id number] Procedures Procedure Name Priority Date/Time Associated Diagnosis Comments XR KNEE 4+ VIEWS RIGHT Routine 04/11/2025 11:43 AM EDT Right knee pain Hemorrhagic prepatellar bursitis of right knee DC ARTHROCENTESIS/ASPIR ATION/INJECTION MAJOR JOINT/BURSA W/O U/S GUIDANCE [...] IMG XR PROCEDURES Fin al Result * DC ARTHROCENTESIS/ASPIRATION/INJECTION MAJOR JOINT/BURSA W/O U/S GUIDANCE (04/11/2025 [...] mg/dL Blood Venous blood specimen / Unknown us Historical Provider LAB BLOOD ORDERABLES Ly l Result * Colonoscopy (05/23/2018) Colonoscopy no interpreta tion,abstr acted Anatomical Region Laterality Modality Other us Historical Provider HEALTH MAINTENANCE Final Result from Last 3 Months or Most Recently Relevant to Health Maintenance Insurance [facility] Advance Directives * Full Code - [...] currently active code status orders. Care Teams Mine Inspector Relationship Specialty Start Date End Date Arleen Kerr MD [address] [phone] PCP - General Internal Medicine 12/05/24
--- OUTSIDE RECORDS SUMMARY | 2025-07-03 12:05 | XMS_ITS | Encounter Summary ---
Author Organization [employer] Address [address] [facility] 7t [place] [address] Care Team Providers Care Environmental Compliance Technician Name Role Phone Unavailable Primary Care Provider Unavailabl e Encounter Details Date Type Department Care Team (Latest Contact Info) Description 12/14/2018 Abstract [facility] CONVERSIONS Dental, Provider, DDS Social History Tobacco [...]
--- OUTSIDE RECORDS SUMMARY | 2025-07-03 12:05 | XMS_ITS | Clinical Summary ---
Author Organization [facility] Address [address] [place] [address] Care Team Providers Care Power Plant Inspector Name Role Phone Unavailable Primary Care Provider Unavailabl e Social History Tobacco Use Types Packs/Day Years Used Date Smoking Tobacco: Never Assessed Sex and Gender Information Value Date Recorded Sex Assigned at Not on file Gender Identity Not on file Sexual Orientation Not on file Plan of Treatment Not on file
--- OUTSIDE RECORDS SUMMARY | 2025-07-03 12:05 | XMS_ITS | Clinical Summary ---
Author Organization [employer] Address [address] [facility] 7t [place] [address] Care Team Providers Care Network Control Operators Supervisor Name Role Phone Unavailable Primary Care Provider [...]
[2025-07-03 14:16] LABS: Folate 15.1 ng/mL (> or = 4.0); Vitamin B12 1572 pg/mL (200-900)
== END 2025-07-03 10:17 | disposition home or self-care (01) ==
LOC: HO.HMGCLDS 10:16
PROVIDERS: PCP Internal Medicine; Visit Provider Internal Medicine
DX: D70.9 Neutropenia, unspecified (principal)
CPT/HCPCS: 36415; 82607; 82746

== ENCOUNTER 2025-07-26 09:03 | Outpatient (REF) | payer OTHER, SELFPAY ==
--- OUTSIDE RECORDS SUMMARY | 2025-07-26 09:30 | XMS_ITS | Clinical Summary ---
Author Organization 175 [facility] Address [address] [place] [address] Phone Care Team Providers Care Director Supplier Quality Name Role Phone Arleen Kerr MD Primary Care Provider [phone] Allergies Active Allergy Reactions Criticality Noted Date Comments Chocolate 09/16/2017 Other Reaction(s): Rash/Dermatitis Patient eats cocoa with no reaction. He thinks it happens if eats frequently [place] And Derivatives 05/18/2017 Egg 11/15/2016 Other Reaction(s): [...] The MRI of the cervical spine from [place] dated September 13, 2024 revealed multilevel mild [...] 05/06/2017 Overview (05/16/2024): Used to see chiropractor Immunizations Immunization Administration Dates Next Due Influenza [...] on file Sexual Orientation Not on file Last Filed Vital Signs Vital Sign Reading [...] this topic Medical Devices Implanted Type Area Research Home Economist Device Identifier Shelf Expiration Date Model / Serial / Lot Plate Lapidus 3h Rght No Arm - Sn/A - [id number] Implanted:Qty: 1 on 12/07/2024 by Santos Morales DPM at [facility] Internal and External Fixation Right: Foot [employer] [id number] 101 / N/A / N/A Screw Lcking Plate 3.5x24mm R3con - Sn/A - [id number] Implanted:Qty: 1 on 12/07/2024 by Santos Morales DPM at [facility] Internal and External Fixation Right: Foot [employer] [id number] 524 / N/A / N/A Screw Lcking Plate 3.5x22mm R3con - Sn/A - [id number] Implanted:Qty: 1 on 12/07/2024 by Santos Morales DPM at [facility] Internal and External Fixation Right: Foot [employer] [id number] 522 / N/A / N/A Screw R3con Non Lcking Plate 3.5x24mm - Sn/A - [id number] Implanted:Qty: 1 on 12/07/2024 by Santos Morales DPM at [facility] Internal and External Fixation Right: Foot [employer] [id number] 524 / N/A / N/A Screw Bone Recon 3.5x20mm Lcking - Sn/A - [id number] Implanted:Qty: 1 on 12/07/2024 by Santos Morales DPM at [facility] Internal and External Fixation Right: Foot [employer] [id number] 520 / N/A / N/A [employer] Nitinol Staple System; Straight Staple Kit Implanted:Qty: 1 on 12/07/2024 by Santos Morales DPM at [facility] Right: Foot [employer] 08/07/2029 [id number] 818-S / N/A / [id number] Procedures Procedure Name Priority Date/Time Associated Diagnosis Comments LIPID PANEL Routine 05/27/2018 HM COLONOSCOPY Routine 05/23/2018 from Last 3 Months or Most Recently Relevant to Health Maintenance Results * Lipid panel (05/27/2018) LDL/HDL Ratio 2 [...] Recently Relevant to Health Maintenance Insurance [facility] Advance Directives * Full Code - Default [...] currently active code status orders. Care Teams Director Supplier Quality Relationship Specialty Start Date End Date Arleen Kerr MD [address] [facility] [place] [address] PCP - General Internal Medicine 12/05/24
--- OUTSIDE RECORDS SUMMARY | 2025-07-26 09:30 | XMS_ITS | Encounter Summary ---
Author Organization [facility] Prior to 06/08/2024 Address [address] [place] [address] Care Team Providers Care Physics Teacher Name Role Phone Samantha Roldan MD Primary Care Provider Unavail able Encounter Details Date Type Department Care Team Description 10/16/2018 Release of Information Medical Records [address] [place] [id number] Abstract, Provider Social History Tobacco Use Types Packs/Day Years Used Date Smoking Tobacco: Never Smokeless Tobacco: Never Comments:never vaped Alcohol Use Standard Drinks/Week Comments No 0 (1 standard drink = 0.6 oz pur e alcohol) Sex Assigned at Date Recorded Not on file documented as of this encounter Plan of Treatment Not on file documented as of this encounter Visit Diagnoses Not on filedocumented in this encounter Care Teams Physics Teacher Relationship Specialty Start Date End Date Samantha Roldan MD PCP - General Internal Medicine 02/14/17 documented as of this encounter
--- OUTSIDE RECORDS SUMMARY | 2025-07-26 09:30 | XMS_ITS | Clinical Summary ---
Author Organization [facility] Prior to 01/05/25 Address [address] [place] [address] Care Team Providers Care Senior Buyer Name Role Phone Unavailable Primary Care Provider Unavailabl e Social History Tobacco Use Types Packs/Day Years Used Date Smoking Tobacco: Never Assessed Sex and Gender Information Value Date Recorded Sex Assigned at Not on file Gender Identity Not on file Sexual Orientation Not on file Plan of Treatment Not on file
--- OUTSIDE RECORDS SUMMARY | 2025-07-26 09:30 | XMS_ITS | Clinical Summary ---
Author Organization [employer] Address [address] [facility] 7t [place] [address] Care Team Providers Care Perinatal Director Name Role Phone Unavailable Primary Care Provider [...]
--- OUTSIDE RECORDS SUMMARY | 2025-07-26 09:30 | XMS_ITS | Encounter Summary ---
Author Organization [employer] Address [address] [facility] 7t [place] [address] Care Team Providers Care Supervisor Record Press Name Role Phone Unavailable Primary Care Provider Unavailabl e Encounter Details Date Type Department Care Team (Latest Contact Info) Description 12/14/2018 Abstract [facility] CONVERSIONS Dental, Provider, DDS Social History [...]
--- OUTSIDE RECORDS SUMMARY | 2025-07-26 09:30 | XMS_ITS | Encounter Summary ---
Author Organization [facility] Prior to 06/08/2024 Address [address] [place] [address] Care Team Providers Care Manager Pharmacy Name Role Phone Samantha Roldan MD Primary Care Provider Unavail able Encounter Details Date Type Department Care Team Description 05/01/2024 Telephone [facility] [address] [facility] [address] [place] [address] Fidelia Streeter PA-C [address] [facility] [address] [place] [address] Social History Tobacco Use Types Packs/Day Years Used Date Smoking Tobacco: Never Smokeless Tobacco: Never Comments:never vaped Alcohol Use Standard Drinks/Week Comments No 0 (1 standard drink = 0.6 oz pur e alcohol) Sex Assigned at Date Recorded Not on file documented as of this encounter Miscellaneous Notes * Telephone Encounter - Nisa Donovan - 05/01/2024 9:27 AM EDT LVM to cx and rs appt ana cristina/ Fidelia documented in this encounter Plan of Treatment Not on file documented as of this encounter Visit Diagnoses Not on filedocumented in this encounter Care Teams Manager Pharmacy Relationship Specialty Start Date End Date Samantha Roldan MD PCP - General Internal Medicine 02/14/17 documented as of this encounter
== END 2025-07-26 09:04 | disposition home or self-care (01) ==
LOC: HO.HPHYSR 09:03
PROVIDERS: Visit Provider Physical Medicine & Rehabilitation
DX: M54.16 Radiculopathy, lumbar region (principal)
CPT/HCPCS: 64483; J2003; J3301; Q9967

== ENCOUNTER 2025-07-26 09:05 | Outpatient (AMB) | payer OTHER, SELFPAY ==
--- NOTE | 2025-07-26 09:02 | A.PHYSOV_ITS ---
Vital Signs 07/26/25 09:03 Height 6 ft Weight 166 lb BMI 22.5 BP 133/89 Pulse 76 Temp 97.9 F Intake Visit Reasons: Right S1 Transforaminal Epidural Injection Intake Note: Patient is a 60 year old male in office today for a Right S1 Transforaminal Epidural Injection. Finish Painter Required: No Allergies tomato Allergy (Mild, Verified 07/26/25 09:03) Rash egg (EGGS) Allergy (Unknown, Verified 07/26/25 09:03) RASH orange (ORANGES) Allergy (Unknown, Verified 07/26/25 09:03) RASH CHOCOLATE Allergy (Unknown, Uncoded 06/06/25 13:13) RASH PFSH Medical History Lumbar radiculitis Fascioscapulohumeral muscular dystrophy BPH (benign prostatic hyperplasia) Colon cancer screening Spondylolisthesis, lumbar region Chronic back pain Asthma Annual physical exam Asthma Surgical History [place] teeth extracted Family History Father Prostate cancer Mother No problems noted. Social History Housing: House Patient Tobacco Use Status: Never used Tobacco e-Cigarette/Vaping Use: Never Used service: No Current occupational status: employed Cognitive needs: No Hearing needs: No Vision needs: Yes Physical Exam Vital Signs: Last Vital Signs Temp 97.9 F 07/26/25 09:03 Pulse 76 07/26/25 09:03 BP 133/89 07/26/25 09:03 BMI result Body Mass Index 22.5 Office Procedures Sacral S1 Transforaminal Epidural Inj - use with FL Gd order: 94416 - Single Procedure code (CPT) selection complete Office Meds Kenalog 40 mg/mL suspension for injection Performing Provider: Hamilton Bello DO Performing Location: [facility] Administered by: Hamilton Bello DO on 07/26/25 09:27 Dose Route Admin Location Dispensed Lot Number Expiration Date [place] Air Traffic Coordinator 40 mg epidural 1 mL [address]-2 [employer] Total Dispensed Waste 1 mL 0 % lidocaine (PF) 10 mg/mL (1 %) injection solution Performing Provider: Hamilton Bello DO Performing Location: [facility] Administered by: Hamilton Bello DO on 07/26/25 09:27 Dose Route Admin Location Dispensed Lot Number Expiration Date [facility] [place] [employer] Traffic Coordinator 50 mg epidural 5 mL 15699-764-76 [facility] Total Dispensed Waste 5 mL 0 % Omnipaque 300 300 mg iodine/mL intravenous solution Performing Provider: Hamilton Bello DO Performing Location: [facility] Administered by: Hamilton Bello DO on 07/26/25 09:27 Dose Route Admin Location Dispensed Lot Number Expiration Date [facility] [place] [employer] Traffic Coordinator 3 mL epidural 10 mL [id number] [employer] ARE Total Dispensed Waste 10 mL 70 % Assessment & Plan Assessment & Plan (1) Lumbar radiculitis: Code(s): M54.16 - Radiculopathy, lumbar region Category: Medical Plan: Procedure Orders: Orders FL Gd Sacral Transforaminal In Today M54.16 - Radiculopathy, lumbar region AMB Lumbar transforaminal Epidural Steroid Injection Today M54.16 - Radiculopathy, lumbar region Coding Level of Care Code Procedure Only Diagnoses Lumbar radiculitis M54.16 CPT Codes Lumbar transforaminal Epidural Steroid I - CPT SACRAL: 14905 - Single ([id number])
[2025-07-26 09:03] VITALS: BP 133/89; PULSE 76; TEMP 36.6; BMI 22.5
== END 2025-07-26 09:28 | disposition home or self-care (01) ==
LOC: HO.HPHYS 09:06
PROVIDERS: PCP Internal Medicine; Visit Provider Physical Medicine & Rehabilitation
DX: M54.16 Radiculopathy, lumbar region (principal)
CPT/HCPCS: 64483